=== PATIENT | male | born 1995 | race Caucasian/White ===

== ENCOUNTER → 2020-08-10 | Outpatient (CLI) | payer SELFPAY | END | disposition home or self-care (01) | LOC: LABWHC1 14:32 | PROVIDERS: ATTEND Emergency Medicine | DX: Z20.828 Contact with and (suspected) exposure to other viral communicable diseases (principal) | CPT/HCPCS: U0003; C9803 ==

== ENCOUNTER 2023-02-06 10:31 | Observation (INO) | payer OTHER ==
[2023-02-06] MEDS ORDERED: ALBUTEROL NEBULIZED 2.5 MG/3 ML INHALATION STA (10:49)
[2023-02-06] MEDS ORDERED: IPRATROPIUM-ALBUTEROL 3 ML NEB INHALATION STA (10:49)
[2023-02-06] MEDS ORDERED: methylPREDNISolone SOD SUCCI 125 MG/2 ML VIAL IV STA (10:51)
[2023-02-06] MEDS ORDERED: MAGNESIUM SULFATE-D5W PMX 1 GM in DEXTROSE/WATER 1 100ML.BAG IVPB ONE (11:00)
--- NOTE | 2023-02-06 11:26 | XR ---
EXAMINATION TYPE: XR chest 2V DATE OF EXAM: 02/06/2023 11:16 AM COMPARISON: None TECHNIQUE: XR chest 2V Frontal and lateral views of the chest. CLINICAL INDICATION:Male, 27 years old with history of difficulty breathing; FINDINGS: Lungs/Pleura: There is no evidence of pleural effusion, focal consolidation, or pneumothorax. Mild h yperinflation. Pulmonary vascularity: Unremarkable. Heart/mediastinum: Cardiomediastinal silhouette is unremarkable. Musculoskeletal: No acute osseous pathology. IMPRESSION: Mild hyperinflation which could be seen with asthma or bronchitis. No pneumothorax.
[2023-02-06 11:43] LABS: Basophils # (A) 0.1 k/uL (0-0.2); Basophils % (A) 1 %; Eosinophils # (A) 1.3 k/uL (0-0.7); Eosinophils % (A) 9 %; HCT 52.9 % (39.0-53.0); HGB 17.7 gm/dL (13.0-17.5); Lymphocytes # (A) 1.8 k/uL (1.0-4.8); Lymphocytes % (A) 13 %; MCH 29.2 pg (25.0-35.0); MCHC 33.5 g/dL (31.0-37.0); MCV 87.2 fL (80.0-100.0); Mean Platelet Volume 7.8; Monocytes # (A) 1.1 k/uL (0-1.0); Monocytes % (A) 8 %; Neutrophils % (A) 66 %; Platelet Count 368 k/uL (150-450); RBC 6.07 m/uL (4.30-5.90); RDW 12.6 % (11.5-15.5); WBC 13.6 k/uL (3.8-10.6)
[2023-02-06 12:06] LABS: Partial Thromboplastin Time 23.8 sec (22.0-30.0); Prothrombin Time 10.5 sec (9.0-12.0)
[2023-02-06 12:08] LABS: Albumin 5.2 g/dL (3.5-5.0); Calcium 10.2 mg/dL (8.4-10.2); Potassium 4.6 mmol/L (3.5-5.1); Total Bilirubin 1.5 mg/dL (0.2-1.3); Total Protein 8.2 g/dL (6.3-8.2)
--- NOTE | 2023-02-06 14:49 | ED ---
SOB HPI - General Chief Complaint: Shortness of Breath Stated Complaint: sob Source: patient Mode of arrival: ambulatory Limitations: no limitations - History of Present Illness Initial Comments: 27-year-old male with history of mild intermittent asthma who presents to the emergency department reporting shortness of breath. States that he had a significant history of asthma as a child. This subsided for many years. This week the patient has been more short of breath. He bought a primatine inhaler and states that he has been using it constantly. He also has an albuterol inhaler. He went to urgent care who gave steroid shots. He has also been taking prednisone twice daily and states that his breathing continues to get worse. He denies any fevers. No sick contacts. No chest pain. No history of cardiac disease. No lower external swelling. No history of DVT or PE. No other alleviating, precipitating or modifying factors - Related Data Home Medications Medication Instructions Recorded Confirmed Albuterol Sulfate [Albuterol 2 puff PO RT-Q6H PRN 02/06/23 02/06/23 Sulfate Hfa] EPINEPHrine [Primatene Mist] 1 - 2 puff INHALATION RT-BID PRN 02/06/23 02/06/23 Allergies Allergy/AdvReac Type Severity Reaction Status Date / Time No Known Allergies Allergy Verified 02/06/23 11:59 Review of Systems ROS Statement: Those systems with pertinent positive or pertinent negative responses have been documented in the HPI. ROS Other: All systems not noted in ROS Statement are negative. Past Medical History Past Medical History: Asthma History of Any Multi-Drug Resistant Organisms: None Reported Past Surgical History: No Surgical Hx Reported Past Psychological History: No Psychological Hx Reported Smoking Status: Former smoker Past Alcohol Use History: None Reported Past Drug Use History: Marijuana General Exam Limitations: no limitations Course Vital Signs 02/06/23 02/06/23 02/06/23 10:31 11:05 11:36 Temperature 98.1 F Pulse Rate 148 H 118 H Respiratory 20 19 20 Rate Blood Pressure 129/79 O2 Sat by Pulse 98 Oximetry 02/06/23 02/06/23 02/06/23 11:44 15:00 16:01 Temperature 98.1 F 98.3 F Pulse Rate 122 H 107 H 101 H Respiratory 19 18 17 Rate Blood Pressure 132/87 135/81 O2 Sat by Pulse 98 95 Oximetry Medical Decision Making - Medical Decision Making Was pt. sent in by a medical professional or institution (ESTHER Gleason, LINUX NETWORK ENGINEER, urgent care, hospital, or fdc...) When possible be specific @ -[No] Did you speak to anyone other than the patient for history (EMS, parent, family, police, friend...)? What history was obtained from this source @ -[No] Did you review nursing and triage notes (agree or disagree)? Why? @ -[I reviewed and agree with nursing and triage notes] Were old charts reviewed (outside hosp., previous admission, EMS record, old EKG, old radiological studies, urgent care reports/EKG's, fdc records)? Report findings @ -[No old charts were reviewed] Differential Diagnosis (chest pain, altered mental status, abdominal pain women, abdominal pain men, vaginal bleeding, weakness, fever, dyspnea, syncope, headache, dizziness, GI bleed, back pain, seizure, CVA, palpatations, mental health, musculoskeletal)? @ -[not applicable] EKG interpreted by me (3pts min.). @ -[As above] X-rays interpreted by me (1pt min.). @ -[None done] CT interpreted by me (1pt min.). @ -[None done] U/S interpreted by me (1pt. min.). @ -[None done] What testing was considered but not performed or refused? (CT, X-rays, U/S, labs)? Why? @ -[None] What meds were considered but not given or refused? Why? @ -[None] Did you discuss the management of the patient with other professionals (professionals i.e. ESTHER Gleason, LINUX NETWORK ENGINEER, lab, RT, psych nurse, social media sr strategy manager, gis programmer, teacher, operations officer trust department, case liner)? Give summary @ -[No] Was smoking cessation discussed for >3mins.? @ -[No] Was critical care preformed (if so, how long)? @ -[No] Were there social determinants of health that impacted care today? How? (Homelessness, low income, unemployed, alcoholism, drug addiction, transportation, low edu. Level, literacy, decrease access to med. care, longterm, rehab)? @ -[No] Was there de-escalation of care discussed even if they declined (Discuss DNR or withdrawal of care, Hospice)? DNR status @ -[No] What co-morbidities impacted this encounter? (DM, HTN, Smoking, COPD, CAD, Cancer, CVA, ARF, Chemo, Hep., AIDS, mental health diagnosis, sleep apnea, morbid obesity)? @ -[None] Was patient admitted / discharged? Hospital course, mention meds given and route, prescriptions, significant lab abnormalities, going to OR and other pertinent info. @ -Upon arrival the patient was placed into trauma 2. He is extremely tachycardic likely related to Primatene use. IV is established and laboratory studies are conducted. Patient was given 125 of Solu-Medrol. Chest x-ray demonstrates acute bronchitis. As he is failing outpatient treatment I did discuss the case with Dr. barrios who agreed to admission Undiagnosed new problem with uncertain prognosis? @ -[No] Drug Therapy requiring intensive monitoring for toxicity (Heparin, Nitro, Insulin, Cardizem)? @ -[No] Were any procedures done? @ -[No] Diagnosis/symptom? @ -[default] Acute, or Chronic, or Acute on Chronic? @ -[default] Uncomplicated (without systemic symptoms) or Complicated (systemic symptoms)? @ -[default] Side effects of treatment? @ -[No] Exacerbation, Progression, or Severe Exacerbation? @ -[No] Poses a threat to life or bodily function? How? (Chest pain, USA, ID, pneumonia, PE, COPD, DKA, ARF, appy, cholecystitis, CVA, Diverticulitis, Homicidal, Suicidal, threat to staff... and all critical care pts) @ -[No] - Lab Data Result diagrams: 02/06/23 10:50 02/06/23 10:50 Lab Results 02/06/23 02/06/23 02/06/23 Range/Units 10:50 10:50 10:50 WBC 13.6 H (3.8-10.6) k/uL RBC 6.07 H (4.30-5.90) m/uL Hgb 17.7 H (13.0-17.5) gm/dL Hct 52.9 (39.0-53.0) % MCV 87.2 (80.0-100.0) fL MCH 29.2 (25.0-35.0) pg MCHC 33.5 (31.0-37.0) g/dL RDW 12.6 (11.5-15.5) % Plt Count 368 (150-450) k/uL MPV 7.8 Neutrophils % 66 % Lymphocytes % 13 % Monocytes % 8 % Eosinophils % 9 % Basophils % 1 % Neutrophils # 9.0 H (1.3-7.7) k/uL Lymphocytes # 1.8 (1.0-4.8) k/uL Monocytes # 1.1 H (0-1.0) k/uL Eosinophils # 1.3 H (0-0.7) k/uL Basophils # 0.1 (0-0.2) k/uL PT 10.5 (9.0-12.0) sec INR 1.0 (<1.2) APTT 23.8 (22.0-30.0) sec D-Dimer 0.18 (<0.60) mg/L FEU Sodium 139 (137-145) mmol/L Potassium 4.6 (3.5-5.1) mmol/L Chloride 99 (98-107) mmol/L Carbon Dioxide 25 (22-30) mmol/L Anion Gap 15 mmol/L BUN 19 (9-20) mg/dL Creatinine 1.41 H (0.66-1.25) mg/dL Est GFR (CKD-EPI)AfAm 78 (>60 ml/min/1.73 sqM) Est GFR (CKD-EPI)NonAf 68 (>60 ml/min/1.73 sqM) Glucose 159 H (74-99) mg/dL Plasma Lactic Acid Remington (0.7-2.0) mmol/L Calcium 10.2 (8.4-10.2) mg/dL Total Bilirubin 1.5 H (0.2-1.3) mg/dL AST 27 (17-59) U/L ALT 31 (4-49) U/L Alkaline Phosphatase 77 (38-126) U/L Troponin I (0.000-0.034) ng/mL Total Protein 8.2 (6.3-8.2) g/dL Albumin 5.2 H (3.5-5.0) g/dL Influenza Type A (PCR) (Not Detectd) Influenza Type B (PCR) (Not Detectd) RSV (PCR) (Not Detectd) SARS-CoV-2 (PCR) (Not Detectd) 02/06/23 02/06/23 02/06/23 Range/Units 10:50 10:50 10:50 WBC (3.8-10.6) k/uL RBC (4.30-5.90) m/uL Hgb (13.0-17.5) gm/dL Hct (39.0-53.0) % MCV (80.0-100.0) fL MCH (25.0-35.0) pg MCHC (31.0-37.0) g/dL RDW (11.5-15.5) % Plt Count (150-450) k/uL MPV Neutrophils % % Lymphocytes % % Monocytes % % Eosinophils % % Basophils % % Neutrophils # (1.3-7.7) k/uL Lymphocytes # (1.0-4.8) k/uL Monocytes # (0-1.0) k/uL Eosinophils # (0-0.7) k/uL Basophils # (0-0.2) k/uL PT (9.0-12.0) sec INR (<1.2) APTT (22.0-30.0) sec D-Dimer (<0.60) mg/L FEU Sodium (137-145) mmol/L Potassium (3.5-5.1) mmol/L Chloride (98-107) mmol/L Carbon Dioxide (22-30) mmol/L Anion Gap mmol/L BUN (9-20) mg/dL Creatinine (0.66-1.25) mg/dL Est GFR (CKD-EPI)AfAm (>60 ml/min/1.73 sqM) Est GFR (CKD-EPI)NonAf (>60 ml/min/1.73 sqM) Glucose (74-99) mg/dL Plasma Lactic Acid Remington 1.9 (0.7-2.0) mmol/L Calcium (8.4-10.2) mg/dL Total Bilirubin (0.2-1.3) mg/dL AST (17-59) U/L ALT (4-49) U/L Alkaline Phosphatase (38-126) U/L Troponin I <0.012 (0.000-0.034) ng/mL Total Protein (6.3-8.2) g/dL Albumin (3.5-5.0) g/dL Influenza Type A (PCR) Not Detected (Not Detectd) Influenza Type B (PCR) Not Detected (Not Detectd) RSV (PCR) Not Detected (Not Detectd) SARS-CoV-2 (PCR) Not Detected (Not Detectd) - EKG Data EKG Comments: EKG interpreted by myself and demonstrates a sinus tachycardia with a rate of 142. MS interval 123. QRS 93. QTC 366. No acute ST segment elevation or depression Disposition Clinical Impression: Asthma exacerbation, Acute respiratory insufficiency, Tachycardia Disposition: ADMITTED IP TO THIS HOSP Condition: Stable Is patient prescribed a controlled substance at d/c from ED?: No Time of Disposition: 14:50 Decision to Admit Reason: Admit from EC Decision Date: 02/06/23 Decision Time: 14:50
[2023-02-06] MEDS ORDERED: NALOXONE 0.4 MG/ML 1 ML VIAL IV PRN (14:50)
[2023-02-06 16:33] VITALS: RESP 16
[2023-02-06] MEDS: methylPREDNISolone SOD SUCCI 40 MG/ML 1 ML VIAL IV SCH ×2 (19:00→23:35)
[2023-02-06] MEDS: IPRATROPIUM-ALBUTEROL 3 ML NEB INHALATION SCH ×2 (20:01→20:02)
[2023-02-06] MEDS: SODIUM CHLORIDE 0.9% 1,000 ML IV SCH ×2 (20:52→21:08)
--- NOTE | 2023-02-06 23:21 | P.HPIM ---
History of Present Illness H&P Date: 02/06/23 Chief Complaint: Shortness of breath Patient is a 27-year-old male with a known history of mild intermittent asthma usually under control and no recent admissions or prior intubation, prior history of smoking and marijuana use presents to ER due to complaints of shortness of breath. Patient has been having symptoms for the past 1 week. He was seen in the urgent care facility on last Saturday. He was given IM steroid and oral prednisone to go home with. He also bought Primatene inhaler [id number]. He has been using albuterol inhaler and Primatene inhaler several times a day without significant improvement in breathing. Presented to ER due to her symptoms not getting better. Denies any complaints of cough or sputum production. No fever no chills. No nausea vomiting or abdominal pain or diarrhea. No leg swelling. No headache or dizziness or lightheadedness. On admission patient was tachycardic with heart rate 148. Pulse ox 98% on room air. Afebrile. Chest x-ray showed mild and hyperinflation which could be seen with asthma or bronchitis. No pneumothorax. EKG showed sinus tachycardia. Laboratory data showed WBC 13.6 hemoglobin 17.7 and platelets 368 eosinophils 1.3 Sodium 139 potassium 4.6 chloride 91 bicarb is 25 BUN 19 and creatinine 1.41 and total bilirubin level 1.5 liver US elevated. Influenza A, B, RSV and COVID-19 PCR not detected. Review of Systems Constitutional: Patient denies any fever or chills . no Generalized weakness. Abdomen: Patient denied any nausea or vomiting or abd. pain Cardiovascular: Patient denies any chest pain. Positive for short of breath no palpitations. Respiratory: Denied any cough or sputum production. Patient does have shortness of breath. Neurologic: Patient denied any numbness or tingling headache. Musculoskeletal: Patient denies any complaints of joint swelling or deformity. Skin: Negative Psychiatric: Negative Endocrine: No heat or cold intolerance. No recent weight gain. Genitourinary: No dysuria or hematuria. All other 14 point ROS negative except the above Past Medical History Past Medical History: Asthma History of Any Multi-Drug Resistant Organisms: None Reported Past Surgical History: No Surgical Hx Reported Past Psychological History: No Psychological Hx Reported Smoking Status: Former smoker Past Alcohol Use History: None Reported Past Drug Use History: Marijuana Medications and Allergies Home Medications Medication Instructions Recorded Confirmed Type Albuterol Sulfate [Albuterol 2 puff PO RT-Q6H PRN 02/06/23 02/06/23 History Sulfate Hfa] EPINEPHrine [Primatene Mist] 1 - 2 puff INHALATION RT-BID PRN 02/06/23 02/06/23 History Allergies Allergy/AdvReac Type Severity Reaction Status Date / Time No Known Allergies Allergy Verified 02/06/23 11:59 Physical Exam Vitals: Vital Signs Temp Pulse Pulse Resp BP BP Pulse Ox 02/06/23 20:11 108 H 02/06/23 20:02 96 02/06/23 19:12 98.4 F 101 H 16 146/77 98 02/06/23 16:31 98.5 F 110 H 16 139/86 97 02/06/23 16:01 98.3 F 101 H 17 135/81 95 02/06/23 15:00 98.1 F 107 H 18 132/87 98 02/06/23 11:44 122 H 19 02/06/23 11:36 118 H 20 02/06/23 11:05 19 02/06/23 10:31 98.1 F 148 H 20 129/79 98 Intake and Output 02/06/23 02/06/23 02/07/23 14:59 22:59 06:59 Other: # Voids 1 Weight 74.843 kg 74.843 kg PHYSICAL EXAMINATION: Patient is lying in the bed comfortably, no acute distress, awake alert and oriented.. HEENT: Normocephalic. Neck is supple. Pupils reactive. Nostrils clear. Oral cavity is moist. Neck reveals no JVD, carotid bruits, or thyromegaly. CHEST EXAMINATION: Trachea is central. Symmetrical expansion. Bilateral diminished air entry and scattered rhonchi and wheezing. Nonlabored breathing.. CARDIAC: Normal S1, S2 with no gallops. No murmurs ABDOMEN: Soft. Bowel sounds present. Nontender. No organomegaly. No abdominal bruits. Extremities: reveal no edema. No clubbing or cyanosis Neurologically awake, alert, oriented x3 with well-coordinated movements. No focal deficits noted Skin: No rash or skin lesions. Psychiatric: Coperative. Nonsuicidal, Musculoskeletal: No joint swelling or deformity. Normal range of motion. Results CBC & Chem 7: 02/06/23 10:50 02/06/23 10:50 Labs: Abnormal Lab Results - Last 24 Hours (Table) 02/06/23 02/06/23 Range/Units 10:50 10:50 WBC 13.6 H (3.8-10.6) k/uL RBC 6.07 H (4.30-5.90) m/uL Hgb 17.7 H (13.0-17.5) gm/dL Neutrophils # 9.0 H (1.3-7.7) k/uL Monocytes # 1.1 H (0-1.0) k/uL Eosinophils # 1.3 H (0-0.7) k/uL Creatinine 1.41 H (0.66-1.25) mg/dL Glucose 159 H (74-99) mg/dL Total Bilirubin 1.5 H (0.2-1.3) mg/dL Albumin 5.2 H (3.5-5.0) g/dL Thrombosis Risk Factor Assmnt - DVT/VTE Prophylaxis DVT/VTE Prophylaxis: Pharmacologic Prophylaxis ordered - Choose All That Apply Any of the Below Risk Factors Present?: No Other Risk Factors: No Other congenital or acquired thrombophilia - If yes, enter type in comment: No Thrombosis Risk Factor Assessment Level: Very Low Risk Assessment and Plan Assessment: Acute severe asthma exacerbation. Failed outpatient therapy. Sinus tachycardia likely due to use of Primatene and albuterol inhalers. Childhood asthma Acute kidney injury with creatinine of 1.41 DVT prophylaxis with early ambulation Plan: Patient will be continued on IV hydration and IV Solu-Medrol 60 mg every 6 hourly. Continue with DuoNebs and monitor closely. Pulmonary was consulted for evaluation. Time with Patient: Greater than 30
[2023-02-07] MEDS: IPRATROPIUM-ALBUTEROL 3 ML NEB INHALATION PRN ×2 (00:07→03:24)
[2023-02-07] MEDS ORDERED: SODIUM CHLORIDE 0.9% 1,000 ML IV SCH (00:15)
--- NOTE | 2023-02-07 00:20 | P.CNPUL ---
History of Present Illness Consult date: 02/07/23 Requesting physician: Keyonna Schneider Reason for consult: asthma Chief complaint: shortness of breath and wheezing History of present illness: I'm seeing this patient in new consultation today 02/07/2023 for acute asthma exacerbation. Patient is a 27-year-old white male with past medical history significant for asthma. He does have a brief smoking history, but has quit over 2 years ago. Patient normally follows with Dr. Tavarez for management of his asthma on an outpatient basis. He currently utilizes an albuterol inhaler. He was on Singulair in the past, however, his insurance did not cover this medication and he stopped taking it. Patient has since accepted a new job, and will be getting new insurance. Patient is reporting progressive shortness of breath and wheezing over the last couple days. Symptoms did not improve with increased use of his as needed albuterol inhaler. He denies any fevers, chills, cough, chest pain. He is currently sitting up in bed, on 4 L nasal cannula, in no acute distress. Chest x-ray on arrival showed no focal consolidation or evidence of pneumonia. There was mild hyperinflation. CBC on arrival showed a WBC count of 13.6, hemoglobin 17.7, hematocrit 52.9, platelets 368. D-dimer was low at 0.18. BMP shows a sodium of 139, potassium 4.6, chloride 99, serum CO2 25, BUN 19, creatinine 1.41, glucose 159. Lactic acid level 1.9. Normal saline is infusing at 75 mL per hour. Troponin negative 1. He was negative for influenza, RSV, COVID-19. He is afebrile. Vital signs are stable. Review of Systems REVIEW OF SYSTEMS: CONSTITUTIONAL: Denies any recent significant weight loss or weight gain. EYES: Denies change in vision. EARS, NOSE, MOUTH, THROAT: Denies headaches, denies sore throat. CARDIOVASCULAR: Denies chest pain,weight gain,lower extremity edema, or syncopal episodes. he does report occasional self-limiting RESPIRATORY: see HPI GASTROINTESTINAL: Denies change in appetite, abdominal pain, nausea and vomiting, or diarrhea GENITOURINARY: Denies hematuria, denies infections. MUSKULOSKELETAL: Denies pain, denies swelling. INTEGUMENTARY: Denies rash, denies eczema. NEUROLOGICAL: Denies recent memory loss, no recent seizure activity. PSYCHIATRIC: Denies anxiety, denies depression. HEMATOLOGIC/LYMPHATIC: Denies anemia, denies enlarged lymph node Past Medical History Past Medical History: Asthma History of Any Multi-Drug Resistant Organisms: None Reported Past Surgical History: No Surgical Hx Reported Past Psychological History: No Psychological Hx Reported Smoking Status: Former smoker Past Alcohol Use History: None Reported Past Drug Use History: Marijuana Medications and Allergies Home Medications Medication Instructions Recorded Confirmed Type Albuterol Sulfate [Albuterol 2 puff PO RT-Q6H PRN 02/06/23 02/06/23 History Sulfate Hfa] EPINEPHrine [Primatene Mist] 1 - 2 puff INHALATION RT-BID PRN 02/06/23 02/06/23 History Allergies Allergy/AdvReac Type Severity Reaction Status Date / Time No Known Allergies Allergy Verified 02/06/23 11:59 Physical Exam Vitals: Vital Signs Temp Pulse Pulse Resp BP BP Pulse Ox 02/06/23 20:11 108 H 02/06/23 20:02 96 02/06/23 19:12 98.4 F 101 H 16 146/77 98 02/06/23 16:31 98.5 F 110 H 16 139/86 97 02/06/23 16:01 98.3 F 101 H 17 135/81 95 02/06/23 15:00 98.1 F 107 H 18 132/87 98 02/06/23 11:44 122 H 19 02/06/23 11:36 118 H 20 02/06/23 11:05 19 02/06/23 10:31 98.1 F 148 H 20 129/79 98 Intake and Output 02/06/23 02/06/23 02/07/23 14:59 22:59 06:59 Other: # Voids 1 Weight 74.843 kg 74.843 kg GENERAL EXAM: Alert, 27-year-old white male, comfortable in no apparent distress. HEAD: Normocephalic and atraumatic EYES: Normal reaction of pupils, equal size. NOSE: Clear with pink turbinates. THROAT: No erythema or exudates. NECK: No masses, no JVD. CHEST: No chest wall deformity. LUNGS: Equal air entry withdiminished lung sounds throughout with end expiratory wheezes. No crackles, wheeze, rhonchi or dullness. on 4 L nasal cannula. No conv ersational dyspnea or accessory muscle use.. CVS: S1 and S2 normal with no audible murmur, regular rhythm. No extra heart sounds. Heart rate 108 bpm ABDOMEN: No hepatosplenomegaly, active bowel sounds, no guarding or rigidity. SPINE: No scoliosis or deformity SKIN: No rashes CENTRAL NERVOUS SYSTEM: No focal deficits, tone is normal in all 4 extremities. EXTREMITIES: There is no peripheral edema, clubbing, or cyanosis. Peripheral pulses are intact. Results - Laboratory Findings CBC and BMP: 02/06/23 10:50 02/06/23 10:50 PT/INR, D-dimer PT 10.5 sec (9.0-12.0) 02/06/23 10:50 INR 1.0 (<1.2) 02/06/23 10:50 D-Dimer 0.18 mg/L FEU (<0.60) 02/06/23 10:50 Abnormal lab findings: Abnormal Labs 02/06/23 02/06/23 10:50 10:50 WBC 13.6 H RBC 6.07 H Hgb 17.7 H Neutrophils # 9.0 H Monocytes # 1.1 H Eosinophils # 1.3 H Creatinine 1.41 H Glucose 159 H Total Bilirubin 1.5 H Albumin 5.2 H - Diagnostic Findings Chest x-ray: image reviewed Assessment and Plan Assessment: Acute asthma exacerbation, chest x-ray shows evidence of hyperinflation without any focal consolidation or evidence of pneumonia. Acute hypoxemic respiratory failure, currently on 4 L nasal cannula acute kidney injury, creatinine 1.4 Ex smoker, patient has a brief smoking history plan: Patient's medications, labs, chest x-ray reviewed continue supplemental oxygen, and wean FIO2 as tolerated Continue bronchodilators and IV Solu-Medrol start Symbicort inhaler Continue IV hydration with normal saline at 75 mL per hour Will will continue to follow I have personally seen and examined the patient, performed the documentation and the assessment and plan as written. Number of minutes spent on the visit:20 Time with Patient: Greater than 30
[2023-02-07] MEDS: methylPREDNISolone SOD SUCCI 125 MG/2 ML VIAL IV SCH ×2 (00:21→06:04)
[2023-02-07 02:58] VITALS: TEMP 97.9
[2023-02-07] MEDS: IPRATROPIUM-ALBUTEROL 3 ML NEB INHALATION SCH ×2 (07:32→11:14)
[2023-02-07] MEDS ORDERED: SYMBICORT 160-4.5 MCG INHALER INHALATION SCH (08:00)
[2023-02-07 08:32] VITALS: BP 129/79
[2023-02-07 08:56] LABS: Basophils # (A) 0.01 X 10*3/uL (0.00-0.10); Basophils % (A) 0.1 %; Eosinophils # (A) 0 X 10*3/uL (0.04-0.35); Eosinophils % (A) 0 %; HCT 47.2 % (39.6-50.0); HGB 15.6 g/dL (13.0-17.0); Immature Grans, Automated 0.4 %; Lymphocytes # (A) 0.33 X 10*3/uL (0.90-5.00); Lymphocytes % (A) 3.1 %; MCH 28.8 pg (27.0-32.0); MCHC 33.1 g/dL (32.0-37.0); MCV 87.1 fL (80.0-97.0); Mean Platelet Volume 10.1 fL (9.5-12.2); Monocytes # (A) 0.13 X 10*3/uL (0.20-1.00); Monocytes % (A) 1.2 %; NRBC Per 100 WBC 0 /100 WBCS (0.0-0.0); Neutrophils % (A) 95.2 %; Platelet Count 339 X 10*3/uL (140-440); RBC 5.42 X 10*6/uL (4.40-5.60); WBC 10.61 X 10*3/uL (4.50-10.00)
[2023-02-07] MEDS ORDERED: predniSONE 20 MG TAB PO SCH (09:00)
[2023-02-07] MEDS ORDERED: AZITHROMYCIN 500 MG TAB PO SCH (09:00)
[2023-02-07 09:04] LABS: African American GFR (CKD) 94.8 (60.0-200.0); Anion Gap 14.5 mmol/L (10.00-18.00); BUN/Creat Ratio 18.08 Ratio (12.00-20.00); Blood Urea Nitrogen 21.7 mg/dL (9.0-27.0); Calcium 9.5 mg/dL (8.7-10.3); Carbon Dioxide 20.5 mmol/L (20.0-27.5); Non-African American GFR(CKD) 81.8 (60.0-200.0); Potassium 4.1 mmol/L (3.5-5.5)
[2023-02-07 11:26] VITALS: PULSE 120
[2023-02-07] MEDS ORDERED: MONTELUKAST 10 MG TAB PO SCH (21:00)
--- NOTE | 2023-02-08 13:08 | P.DS ---
Providers Date of admission: 02/06/23 14:50 Expected date of discharge: 02/07/23 Attending physician: Sophie Valdivia Consults: 02/06/23 14:50 Consult Physician Urgent Consulting Provider: Marcelo Low Consult Reason/Comments: asthma exacerbation, failing outpatient treatment Do you want consulting provider notified?: Yes Primary care physician: Daysi Aguilar Hospital Course: Final diagnosis Acute severe asthma exacerbation. Failed outpatient therapy. Sinus tachycardia likely due to use of Primatene and albuterol inhalers. Improving Childhood asthma Acute kidney injury with creatinine of 1.41, improving DVT prophylaxis Discharge disposition Patient is being discharged in a stable condition with guarded prognosis to home. Patient will follow-up with in the outpatient setting upon discharge. Patient is to continue on a prednisone taper along with inhalers including Symbicort and outpatient follow-up with pulmonary as scheduled for further PFT testing. Recommend labs in the outpatient setting to monitor kidney functions. Total time taken is greater than 35 minutes. Hospital course This is a 27-year-old male who was recently admitted with acute severe asthma exacerbation with failed outpatient therapy. Patient was started on a quick prednisone taper given an inhaler although continue to worsen and presented to the emergency department with shortness of breath is placed on oxygen and started on IV steroids. Patient was evaluated by pulmonary and started on Symbicort and encouraged continued albuterol use and has now transitioned oral prednisone. Patient to continue prednisone taper on discharge and complete the last 2 days of Zithromax. Patient instructed to follow-up with pulmonary outpatient for further PFT testing. Patient has been cleared by consultations for discharge. Please refer to consultation notes for further HPI. Currently no reports of chest pain, worsening shortness of breath, or palpitations. Patient is afebrile. No reports of nausea or vomiting and patient is tolerating diet. Patient will be discharged home today. Physical exam: Gen: This is a 19-year-old male who is awake, alert and oriented 3, well- developed, well-nourished HEENT: Head is atraumatic, normocephalic. Pupils equal, round. Sclerae is anicteric. NECK: Supple. No JVD. No lymphadenopathy. No thyromegaly. LUNGS: Coarse rhonchi noted bilaterally with improved aeration. No intercostal retractions. HEART: Regular rate and rhythm. No murmur. ABDOMEN: Soft. Bowel sounds are present. No masses. No tenderness. EXTREMITIES: No pedal edema. No calf tenderness. NEUROLOGICAL: Patient is awake, alert and oriented x3. Cranial nerves 2 through 12 are grossly intact. Please refer to medication reconciliation sheet for a list of medications. The impression and plan of care has been dictated by Mine Dos Santos, Nurse Practitioner as directed. Dr. Shea MD I have performed a history and examination and MDM of this patient, discussed the same with the dictator, and agree with the dictator's assessment and plan as written ,documented as a scribe. Based on total visit time, I have performed more than 50% of the visit. Patient Condition at Discharge: Stable Plan - Discharge Summary Discharge Rx Participant: No New Discharge Prescriptions: New Budesonide-Formot 160-4.5 Mcg [Symbicort 160-4.5 Mcg Inhaler] 2 puff INHALATION RT-BID 30 Days #1 each predniSONE 10 mg PO DIRECTED #30 tab Montelukast [Singulair] 10 mg PO HS #30 tab Azithromycin [Zithromax] 500 mg PO DAILY 3 Days #3 tab Continue EPINEPHrine [Primatene Mist] 1 - 2 puff INHALATION RT-BID PRN PRN Reason: Shortness Of Breath Albuterol Sulfate [Albuterol Sulfate Hfa] 2 puff PO RT-Q6H PRN 30 Days #1 each PRN Reason: Shortness Of Breath Discharge Medication List EPINEPHrine [Primatene Mist] 1 - 2 puff INHALATION RT-BID PRN 02/06/23 [History] Albuterol Sulfate [Albuterol Sulfate Hfa] 2 puff PO RT-Q6H PRN 30 Days #1 each 02/07/23 [Rx] Azithromycin [Zithromax] 500 mg PO DAILY 3 Days #3 tab 02/07/23 [Rx] Budesonide-Formot 160-4.5 Mcg [Symbicort 160-4.5 Mcg Inhaler] 2 puff INHALATION RT-BID 30 Days #1 each 02/07/23 [Rx] Montelukast [Singulair] 10 mg PO HS #30 tab 02/07/23 [Rx] predniSONE 10 mg PO DIRECTED #30 tab 02/07/23 [Rx] Follow up Appointment(s)/Referral(s): Marcelo Low MD [STAFF PHYSICIAN] - 02/20/23 2:15 pm Jeff Tavarez MD [Primary Care Provider] - 1-2 days Ambulatory/Diagnostic Orders: Basic Metabolic Panel [LAB.AMB] Time Frame: 3 Days, Location: None Selected Activity/Diet/Wound Care/Special Instructions: Activity Limited until follow-up Follow-up with primary care provider on discharge Follow-up with pulmonary for further testing outpatient Continue taking medications as prescribed Recommend repeat labs in next few days to monitor kidney functions Discharge Disposition: HOME SELF-CARE
== END 2023-02-07 13:52 | disposition home or self-care (01) ==
LOC: EC 10:31 → 6NMEDSUR 14:50
PROVIDERS: ADMIT Internal Medicine; ATTEND Internal Medicine
DX: J45.21 Mild intermittent asthma with (acute) exacerbation (principal); J96.01 Acute respiratory failure with hypoxia; N17.9 Acute kidney failure, unspecified; R00.0 Tachycardia, unspecified; Z20.822 Contact with and (suspected) exposure to COVID-19; Z79.899 Other long term (current) drug therapy; Z87.891 Personal history of nicotine dependence
CPT/HCPCS: 96376 ×2; 96365; 96375; 99285; 36415; 94640 ×4; 94760; 93005; 85379; 84439; 80053; 80048; 84443; 83605; 84484; 85025 ×2; 85610; 85730; 87636; 71046; G0378 ×2; J2920; J2930 ×2; J3475; J7512

== ENCOUNTER 2025-01-09 01:33 | Inpatient (IN) | payer OTHER ==
[2025-01-09] MEDS: SODIUM CHLORIDE 0.9% 1,000 ML IV ONE (01:46)
[2025-01-09] MEDS: methylPREDNISolone SOD SUCCI 125 MG/2 ML VIAL IV STA (01:47)
[2025-01-09] MEDS: MAGNESIUM SULFATE-D5W PMX 1 GM in DEXTROSE/WATER 1 100ML.BAG IVPB SCH (01:49)
[2025-01-09] MEDS: ALBUTEROL NEBULIZED 2.5 MG/3 ML INHALATION STA ×2 (01:56→03:21)
[2025-01-09] MEDS: IPRATROPIUM 0.5 MG/2.5 ML NEBU INHALATION STA ×3 (01:57→03:21)
[2025-01-09] MEDS: ALBUTEROL NEBULIZED 2.5 MG/3 ML INHALATION SCH (02:01)
--- NOTE | 2025-01-09 02:18 | ED ---
General Adult HPI - General Chief complaint: Shortness of Breath Stated complaint: lianet Time Seen by Provider: 01/09/25 01:37 Source: patient, EMS Mode of arrival: EMS - History of Present Illness Initial comments: Patient is a 29-year-old male with a history of asthma presenting today for shortness of breath. States has had worsening shortness for the last 2 days. Throughout the day today not improving with home inhalers. has a son brought home and upper respiratory infection. Patient has had a cough with sputum. But denies hemoptysis. No fevers, no chest pain, no abdominal pain, no nausea or vomiting. No melena or hematochezia. Has not recently been on ster oids. No prior ICU admissions. Was admitted once to the hospital last summer for an asthma exacerbation. - Related Data Home Medications Medication Instructions Recorded Confirmed EPINEPHrine [Primatene Mist] 1 - 2 puff INHALATION RT-BID PRN 02/06/23 02/06/23 Previous Rx's Medication Instructions Recorded Albuterol Sulfate [Albuterol 2 puff PO RT-Q6H PRN 30 Days #1 02/07/23 Sulfate Hfa] each Azithromycin [Zithromax] 500 mg PO DAILY 3 Days #3 tab 02/07/23 Budesonide-Formot 160-4.5 Mcg 2 puff INHALATION RT-BID 30 Days 02/07/23 [Symbicort 160-4.5 Mcg Inhaler] #1 each Montelukast [Singulair] 10 mg PO HS #30 tab 02/07/23 predniSONE 10 mg PO DIRECTED #30 tab 02/07/23 Allergies Allergy/AdvReac Type Severity Reaction Status Date / Time No Known Allergies Allergy Verified 01/09/25 01:36 Review of Systems ROS Statement: Those systems with pertinent positive or pertinent negative responses have been documented in the HPI. ROS Other: All systems not noted in ROS Statement are negative. Past Medical History Past Medical History: Asthma History of Any Multi-Drug Resistant Organisms: None Reported Past Surgical History: No Surgical Hx Reported Past Psychological History: No Psychological Hx Reported Smoking Status: Former smoker Past Alcohol Use History: None Reported Past Drug Use History: Marijuana General Exam - General Exam Comments Initial Comments: PE: CONSTITUTIONAL: Male distress, pale, diaphoretic ill-appearing SKIN: Cool, damp, no jaundice, hives or petechiae EYES: Pupils are equally round, extraocular movements intact without nystagmus, clear conjunctiva, non-icteric sclera HENT: Normocephalic, atraumatic, moist mucus membranes, oropharynx clear without exudates NECK: , Full range of motion, normal appearance PULMONARY: Diffuse wheezing throughout all lung buckner, decreased excursion, tachypnea, no stridor CARDIOVASCULAR: Tachycardia, regular rate, rhythm, normal S1 and S2. No appreciated murmurs, rubs or gallops. Strong radial pulses with intact distal perfusion. No lower extremity edema GASTROINTESTINAL: Soft, active bowel sounds throughout, non-tender, non- distended, no palpable masses, no rebound or guarding. No hepatosplenomegaly MUSCULOSKELETAL: Extremities have no gross deformity, no edema, redness, or swelling. No calf swelling NEUROLOGIC:_a/o x 3, GCS 15, normal mentation and speech. Moves all extremities x 4 without motor or sensory deficit PSYCHIATRIC:_normal mood and affect, thought process is clear and linear Course Vital Signs 01/09/25 01/09/25 01/09/25 01:34 01:45 01:59 Temperature 98.2 F Pulse Rate 138 H 122 H Respiratory 22 24 Rate Blood Pressure 130/96 O2 Sat by Pulse 97 Oximetry 01/09/25 01/09/25 01/09/25 02:13 02:25 02:36 Temperature Pulse Rate 115 H 130 H 116 H Respiratory 22 Rate Blood Pressure 132/86 O2 Sat by Pulse 98 Oximetry 01/09/25 01/09/25 03:22 03:32 Temperature Pulse Rate 117 H 118 H Respiratory Rate Blood Pressure O2 Sat by Pulse Oximetry - Reevaluation(s) Reevaluation #1: Patient reassessed, he is much more comfortable appearing, no longer diaphoretic breathing comfortably, does continue to have coarse wheezing 01/09/25 03:05 EKG Findings - EKG Comments: EKG Findings:: Sinus tachycardia rate 130 bpm, intervals within acceptable limits, normal axis, no ST elevations or depressions, no arrhythmia, no ischemic changes Medical Decision Making - Medical Decision Making Was pt. sent in by a medical professional or institution (, PA, EARLY CHILDHOOD LEAD TEACHER, urgent care, hospital, or [facility]...) When possible be specific @ -[No] Did you speak to anyone other than the patient for history (EMS, parent, family, police, friend...)? What history was obtained from this source @ -[No] Did you review nursing and triage notes (agree or disagree)? Why? @ -[I reviewed and agree with nursing and triage notes] Were old charts reviewed (outside hosp., previous admission, EMS record, old EKG, old radiological studies, urgent care reports/EKG's, [facility] records)? Report findings @ -[Medical records reviewed] reviewed most recent x-ray in our system from January 2023 showed hyperinflation but no pneumothorax or acute process Differential Diagnosis (chest pain, altered mental status, abdominal pain women, abdominal pain men, vaginal bleeding, weakness, fever, dyspnea, syncope, headache, dizziness, GI bleed, back pain, seizure, CVA, palpatations, mental health, musculoskeletal)? Differential Dyspnea: Coronary syndrome, arrhythmia, tamponade, asthma, COPD, pulmonary embolism, pneumonia, pneumothorax, pulmonary effusion, anaphylaxis, diabetic ketoacidosis, flailed chest, pulmonary contusion, diaphragmatic rupture, anemia, neuromuscular, this is not meant to be an all-inclusive list. EKG interpreted by me (3pts min.). @ -[As above] X-rays interpreted by me (1pt min.). @Chest x-ray viewed I see no evidence of cardiomegaly, consolidations or pleural effusions, appears to show hyperinflation CT interpreted by me (1pt min.). @ -[None done] U/S interpreted by me (1pt. min.). @ -[None done] What testing was considered but not performed or refused? (CT, X-rays, U/S, labs)? Why? @ -[None] What meds were considered but not given or refused? Why? @ -[None] Did you discuss the management of the patient with other professionals (professionals i.e. , PA, EARLY CHILDHOOD LEAD TEACHER, lab, RT, psych nurse, social service worker, tooth cutter spur, teacher, tank officer, briefcase sewer)? Give summary @ -[No] Was smoking cessation discussed for >3mins.? @ -[No] Was critical care preformed (if so, how long)? @ -[No] Were there social determinants of health that impacted care today? How? (Homelessness, low income, unemployed, alcoholism, drug addiction, transportation, low edu. Level, literacy, decrease access to med. care, longterm, rehab)? @ -[No] Was there de-escalation of care discussed even if they declined (Discuss DNR or withdrawal of care, Hospice)? @ -[No] What co-morbidities impacted this encounter? (DM, HTN, Smoking, COPD, CAD, Cancer, CVA, ARF, Chemo, Hep., AIDS, mental health diagnosis, sleep apnea, morbid obesity)? Asthma Was patient admitted / discharged? Hospital course, mention meds given and route, prescriptions, significant lab abnormalities, going to OR and other pertinent info. @ -[hospital course] this is a pleasant 29-year-old gentleman presenting today for shortness of breath consistent with asthma exacerbation. Recent exposure to childhood URI. No improvement with home inhalers. On arrival patient is tachypneic, tachycardic, not hypoxic. He does have wheezing throughout all lung buckner. Immediately ordered DuoNebs, steroids, IV magnesium IV fluids. Will obtain basic labs Labs and imaging reviewed. Grossly within normal limits. Abnormal values not c oncerning for acute pathology related to presenting complaint. Patient has received a total of 4 DuoNeb treatments. 3 [id number] 5 mg albuterol with ipratropium and an additional low-dose DuoNeb. Despite this he has continued inspiratory next wheezing. He no longer appears diaphoretic or in any acute distress, work of breathing is improved and unlabored however due to the continued severity of his symptoms plan for admission for observation. Patient agreeable plan of care. Undiagnosed new problem with uncertain prognosis? @ -[No] Drug Therapy requiring intensive monitoring for toxicity (Heparin, Nitro, Insulin, Cardizem)? @ -[No] Were any procedures done? @ -[No] Diagnosis/symptom? @ -Asthma exacerbation, severe Acute, or Chronic, or Acute on Chronic? Acute Uncomplicated (without systemic symptoms) or Complicated (systemic symptoms)? @ -[default] Side effects of treatment? @ -[No] Exacerbation, Progression, or Severe Exacerbation? @ -[No] Poses a threat to life or bodily function? How? (Chest pain, [place], [place], pneumonia, PE, COPD, DKA, ARF, appy, cholecystitis, CVA, Diverticulitis, Homicidal, Suicidal, threat to staff... and all critical care pts) @ -[No] - Lab Data Result diagrams: 01/09/25 01:47 01/09/25 01:47 Lab Results 01/09/25 01/09/25 01/09/25 Range/Units 01:47 01:47 01:47 WBC 11.65 H (4.50-10.00) 10*3/uL RBC 5.35 (4.40-5.60) 10*6/uL Hgb 15.7 (13.0-17.0) g/dL Hct 45.7 (39.6-50.0) % MCV 85.4 (80.0-97.0) fL MCH 29.3 (27.0-32.0) pg MCHC 34.4 (32.0-37.0) g/dL Plt Count 331 (140-440) 10*3/uL MPV 10.2 (9.5-12.2) fL Immature Gran % (Auto) 0.3 % Neutrophils % 74.8 % Lymphocytes % 8.0 % Monocytes % 9.2 % Eosinophils % 7.0 % Basophils % 0.7 % Immature Gran # 0.04 (0.00-0.04) 10*3/uL Neutrophils # 8.71 H (1.80-7.70) 10*3/uL Lymphocytes # 0.93 (0.90-5.00) 10*3/uL Monocytes # 1.07 H (0.20-1.00) 10*3/uL Eosinophils # 0.82 H (0.04-0.35) 10*3/uL Basophils # 0.08 (0.00-0.10) 10*3/uL PT 10.7 (10.0-12.5) sec INR 1.0 (<1.2) APTT 23.2 (22.0-30.0) sec Sodium 141 (137-145) mmol/L Potassium 3.8 (3.5-5.1) mmol/L Chloride 105 (98-107) mmol/L Carbon Dioxide 21 L (22-30) mmol/L Anion Gap 15 mmol/L BUN 14 (9-20) mg/dL Creatinine 1.20 (0.66-1.25) mg/dL Est GFR (CKD-EPI)AfAm >90 (>60 ml/min/1.73 sqM) Est GFR (CKD-EPI)NonAf 81 (>60 ml/min/1.73 sqM) Glucose 129 H (74-99) mg/dL Calcium 10.0 (8.4-10.2) mg/dL Total Bilirubin 0.9 (0.2-1.3) mg/dL AST 29 (17-59) U/L ALT 30 (4-49) U/L Alkaline Phosphatase 77 (38-126) U/L Troponin I (0.000-0.034) ng/mL NT-Pro-B Natriuret Pep 54 pg/mL Total Protein 7.4 (6.3-8.2) g/dL Albumin 4.8 (3.5-5.0) g/dL Influenza Type A (PCR) (Not Detectd) Influenza Type B (PCR) (Not Detectd) RSV (PCR) (Not Detectd) SARS-CoV-2 (PCR) (Not Detectd) 01/09/25 01/09/25 Range/Units 01:47 01:47 WBC (4.50-10.00) 10*3/uL RBC (4.40-5.60) 10*6/uL Hgb (13.0-17.0) g/dL Hct (39.6-50.0) % MCV (80.0-97.0) fL MCH (27.0-32.0) pg MCHC (32.0-37.0) g/dL Plt Count (140-440) 10*3/uL MPV (9.5-12.2) fL Immature Gran % (Auto) % Neutrophils % % Lymphocytes % % Monocytes % % Eosinophils % % Basophils % % Immature Gran # (0.00-0.04) 10*3/uL Neutrophils # (1.80-7.70) 10*3/uL Lymphocytes # (0.90-5.00) 10*3/uL Monocytes # (0.20-1.00) 10*3/uL Eosinophils # (0.04-0.35) 10*3/uL Basophils # (0.00-0.10) 10*3/uL PT (10.0-12.5) sec INR (<1.2) APTT (22.0-30.0) sec Sodium (137-145) mmol/L Potassium (3.5-5.1) mmol/L Chloride (98-107) mmol/L Carbon Dioxide (22-30) mmol/L Anion Gap mmol/L BUN (9-20) mg/dL Creatinine (0.66-1.25) mg/dL Est GFR (CKD-EPI)AfAm (>60 ml/min/1.73 sqM) Est GFR (CKD-EPI)NonAf (>60 ml/min/1.73 sqM) Glucose (74-99) mg/dL Calcium (8.4-10.2) mg/dL Total Bilirubin (0.2-1.3) mg/dL AST (17-59) U/L ALT (4-49) U/L Alkaline Phosphatase (38-126) U/L Troponin I <0.012 (0.000-0.034) ng/mL NT-Pro-B Natriuret Pep pg/mL Total Protein (6.3-8.2) g/dL Albumin (3.5-5.0) g/dL Influenza Type A (PCR) Not Detected (Not Detectd) Influenza Type B (PCR) Not Detected (Not Detectd) RSV (PCR) Not Detected (Not Detectd) SARS-CoV-2 (PCR) Not Detected (Not Detectd) Disposition Clinical Impression: Asthma with severe exacerbation Disposition: ADMITTED IP TO THIS HOSP Condition: Stable Referrals: None,Stated [Primary Care Provider] - 1-2 days
[2025-01-09 02:23] LABS: Basophils # (A) 0.08 10*3/uL (0.00-0.10); Basophils % (A) 0.7 %; Eosinophils # (A) 0.82 10*3/uL (0.04-0.35); HCT 45.7 % (39.6-50.0); HGB 15.7 g/dL (13.0-17.0); Lymphocytes # (A) 0.93 10*3/uL (0.90-5.00); MCH 29.3 pg (27.0-32.0); MCHC 34.4 g/dL (32.0-37.0); MCV 85.4 fL (80.0-97.0); Mean Platelet Volume 10.2 fL (9.5-12.2); Monocytes # (A) 1.07 10*3/uL (0.20-1.00); Monocytes % (A) 9.2 %; Neutrophils # (A) 8.71 10*3/uL (1.80-7.70); Neutrophils % (A) 74.8 %; Platelet Count 331 10*3/uL (140-440); RBC 5.35 10*6/uL (4.40-5.60); RDW 13.1 % (11.5-14.5); WBC 11.65 10*3/uL (4.50-10.00)
[2025-01-09] MEDS: guaiFENesin 600 MG TABLET.ER PO STA (02:31)
[2025-01-09 02:37] LABS: Partial Thromboplastin Time 23.2 sec (22.0-30.0); Prothrombin Time 10.7 sec (10.0-12.5)
[2025-01-09 02:45] LABS: ALT 30 U/L (4-49); AST 29 U/L (17-59); African American GFR (CKD) >90 (>60 ml/min/1.73 sqM); Albumin 4.8 g/dL (3.5-5.0); Alkaline Phosphatase 77 U/L (38-126); Anion Gap 15 mmol/L; Blood Urea Nitrogen 14 mg/dL (9-20); Carbon Dioxide 21 mmol/L (22-30); Chloride 105 mmol/L (98-107); Glucose 129 mg/dL (74-99); Non-African American GFR(CKD) 81 (>60 ml/min/1.73 sqM); Potassium 3.8 mmol/L (3.5-5.1); Sodium 141 mmol/L (137-145); Total Bilirubin 0.9 mg/dL (0.2-1.3); Total Protein 7.4 g/dL (6.3-8.2)
[2025-01-09 02:54] LABS: NT-Pro-B-Type Natriuretic Pept 54 pg/mL
[2025-01-09 03:24] LABS: Influenza A Not Detected (Not Detectd); Influenza B Not Detected (Not Detectd); RSV Not Detected (Not Detectd)
--- NOTE | 2025-01-09 04:28 | XR ---
EXAM: XR Chest, 1 View CLINICAL HISTORY: ITS.REASON XR Reason: difficulty breathing TECHNIQUE: Frontal view of the chest. COMPARISON: No relevant prior studies available. FINDINGS: Lungs: No consolidation or mass. Pleural space: No acute findings. Heart: No cardiomegaly. Bones/joints: No acute findings. IMPRESSION: No acute cardiopulmonary process.
[2025-01-09] MEDS ORDERED: NALOXONE 0.4 MG/ML 1 ML VIAL IVP PRN (05:05)
[2025-01-09] MEDS ORDERED: BENZONATATE 100 MG CAP PO PRN (05:05)
[2025-01-09] MEDS ORDERED: HYDROcodone/APAP 5-325MG 1 EACH TAB PO PRN (05:05)
[2025-01-09] MEDS ORDERED: ACETAMINOPHEN TAB 325 MG TAB PO PRN (05:05)
[2025-01-09] MEDS: IPRATROPIUM-ALBUTEROL 3 ML NEB INHALATION STA (05:44)
[2025-01-09] MEDS: IPRATROPIUM-ALBUTEROL 3 ML NEB INHALATION SCH (08:06)
[2025-01-09] MEDS: guaiFENesin 600 MG TABLET.ER PO SCH (08:07)
[2025-01-09] MEDS: predniSONE 20 MG TAB PO SCH (08:07)
--- NOTE | 2025-01-09 11:19 | P.CNPUL ---
History of Present Illness Consult date: 01/09/25 Requesting physician: Ltio Montano Reason for consult: dyspnea, cough, asthma Chief complaint: Shortness of breath, cough, wheezing, chest tightness. History of present illness: Pulmonary consult dated January 09, 2025. 29-year-old male with a history of chronic bronchial asthma, presents to the emergency department, on January 09, complaining of 2 days worth of increasing and progressive shortness of breath. In addition, the patient complains of cough, wheezing, and tightness. No fever or chills. He apparently does not have a family doctor. For his asthma, he takes Singulair, 10 mg, and albuterol inhaler. He does not take anything for maintenance therapy other than the Singulair. He apparently has not seen a lung doctor in the past. He states that he does not currently smoke, although he did smoke in the past. He does use marijuana. He does not vape. Again, he does not have a family doctor. He states that he typically shops around for doctor, and used to see Dr. Tavarez. [facility] te count is 11.7, hemoglobin 15.7, hematocrit 45.7, and platelet count 331,000. Sodium 141, potassium 3.8, chlorides 105, CO2 21, BUN 14, creatinine 1.20. Glucose is 129. Viral screen was negative for RSV, coronavirus, and influenza. Chest x-ray was negative. Review of Systems REVIEW OF SYSTEMS: CONSTITUTIONAL: [Negative.] NEUROLOGIC: [ Negative.] HEENT: [ Negative.] CARDIAC: [Negative.] PULMONARY: Shortness of breath, cough, chest tightness, and wheezing. GI: [Negative.] : [Negative.] RHEUMATOLOGIC: [ Negative.] IMMUNOLOGIC: [ Negative.] ENDOCRINE: [Negative. ] DERMATOLOGIC: [Negative.] Past Medical History Past Medical History: Asthma History of Any Multi-Drug Resistant Organisms: None Reported Past Surgical History: No Surgical Hx Reported Past Psychological History: No Psychological Hx Reported Smoking Status: Former smoker Past Alcohol Use History: None Reported Past Drug Use History: Marijuana Medications and Allergies Home Medications Medication Instructions Recorded Confirmed Type EPINEPHrine [Primatene Mist] 1 - 2 puff INHALATION RT-BID PRN 02/06/23 02/06/23 History Albuterol Sulfate [Albuterol 2 puff PO RT-Q6H PRN 30 Days #1 05/18/23 Rx Sulfate Hfa] each Azithromycin [Zithromax] 500 mg PO DAILY 3 Days #3 tab 02/07/23 Rx Budesonide-Formot 160-4.5 Mcg 2 puff INHALATION RT-BID 30 Days 02/07/23 Rx [Symbicort 160-4.5 Mcg Inhaler] #1 each Montelukast [Singulair] 10 mg PO HS #30 tab 02/07/23 Rx predniSONE 10 mg PO DIRECTED #30 tab 02/07/23 Rx Allergies Allergy/AdvReac Type Severity Reaction Status Date / Time No Known Allergies Allergy Verified 01/09/25 01:36 Physical Exam Osteopathic Statement: *. No significant issues noted on an osteopathic structural exam other than those noted in the History and Physical/Consult. Vitals: Vital Signs Temp Pulse Pulse Pulse Resp BP BP 01/09/25 08:21 119 H 01/09/25 08:06 118 H 01/09/25 08:05 98.7 F 108 H 22 153/74 01/09/25 06:51 97.9 F 112 H 20 136/81 01/09/25 06:27 107 H 20 115/63 01/09/25 05:56 110 H 01/09/25 05:45 109 H 01/09/25 03:32 118 H 01/09/25 03:22 117 H 01/09/25 02:36 116 H 22 132/86 01/09/25 02:25 130 H 01/09/25 02:13 115 H 01/09/25 01:59 122 H 01/09/25 01:45 24 01/09/25 01:34 98.2 F 138 H 22 130/96 Pulse Ox 01/09/25 08:21 01/09/25 08:06 01/09/25 08:05 97 01/09/25 06:51 92 L 01/09/25 06:27 99 01/09/25 05:56 01/09/25 05:45 01/09/25 03:32 01/09/25 03:22 01/09/25 02:36 98 01/09/25 02:25 01/09/25 02:13 01/09/25 01:59 01/09/25 01:45 01/09/25 01:34 97 Intake and Output 01/08/25 01/09/25 01/09/25 22:59 06:59 14:59 Intake Total 240 Balance 240 Intake: Oral 240 Other: Weight 83.915 kg No acute distress, oriented 3. HEENT examination is grossly unremarkable. Mucous membranes are moist. No oral lesions. Neck supple. Full range of motion. No adenopathy thyromegaly or neck vein distention. Cardiovascular examination reveals regular rhythm rate. S1-S2 normal. No S3 or S4. No discernible murmur noted. Lungs reveal diffuse bilateral inspiratory and expiratory wheezes and rhonchi. The patient is quite bronchospastic. Breath sounds are equal. There are no crackles. Abdomen soft bowel sounds are heard. No masses or tenderness. Extremities are intact. No cyanosis clubbing or edema. Skin is without rash or lesion. Neurologic examination is brief but nonfocal. Results - Laboratory Findings CBC and BMP: 01/09/25 01:47 01/09/25 01:47 PT/INR, D-dimer PT 10.7 sec (10.0-12.5) 01/09/25 01:47 INR 1.0 (<1.2) 01/09/25 01:47 Abnormal lab findings: Abnormal Labs 01/09/25 01/09/25 01:47 01:47 WBC 11.65 H Neutrophils # 8.71 H Monocytes # 1.07 H Eosinophils # 0.82 H Carbon Dioxide 21 L Glucose 129 H - Diagnostic Findings Chest x-ray: image reviewed Assessment and Plan Assessment: Acute exacerbation of chronic bronchial asthma. Plan: Plan dated January 09, 2025. The patient is currently on appropriate medications, including updrafts with both albuterol sulfate and ipratropium bromide, as well as singular 10 mg at bedtime, and prednisone 40 mg a day. In addition, we add Symbicort 160/4.5, 2 puffs twice a day. The patient does not appear to have an infection, and at this time, does not need any antibiotics. All labs, x-rays, and medications are reviewed. We will continue to follow make recommendations along the way. The patient does need to get a family doctor. Prognosis is guarded. Dictation was produced using [employer] software. Please excuse any grammatical, word or spelling errors. Time with Patient: Greater than 30
[2025-01-09] MEDS ORDERED: DEXTROSE 50% SYRINGE 50 ML IVP PRN ×2 (12:16)
[2025-01-09] MEDS: MAGNESIUM SULFATE-D5W PMX 1 GM in DEXTROSE/WATER 1 100ML.BAG IVPB ONE (12:49)
[2025-01-09] MEDS: methylPREDNISolone SOD SUCCI 125 MG/2 ML VIAL IV SCH (12:49)
[2025-01-09] MEDS: INSULIN LISPRO (HumaLOG) 100 UNIT/ML 10 mL VL SQ SCH (12:50)
--- NOTE | 2025-01-09 13:43 | P.HPIM ---
History of Present Illness H&P Date: 01/09/25 History of present illness; patient is 29-year-old gentleman with past medical history significant for asthma presented to the ER because of shortness of breath. Patient said that he was all right 2 days back when he started noticing shortness of breath. Shortness of breath was present on rest as resolution. Patient was complaining of wheezing. Patient was complaining of cough which is nonproductive. There was no complaint of fever or chills. Patient stated that he was exposed to his kid being sick with upper respiratory infection. Patient has been using inhalers at home but without any relief. Because of his worsening shortness of breath, patient came to the ER Initial lab work done in the ER showed WBC 9.65, hemoglobin 15.7, platelet count 331, sodium 141, potassium 3.8, BUN 14, creatinine 1.20, glucose 129, AST 29, ALT 30, troponin 0.012 Influenza A not detected Influenza B not detected RSV not detected COVID-19 not detected EKG done in the ER showed heart rate of 130, no ST segment elevation or depression seen, no T-wave inversions seen. Chest x-ray done in the ER showed no acute cardiopulmonary Patient admitted to internal medicine service REVIEW OF SYSTEMS: CONSTITUTIONAL: No fever, no malaise, no fatigue. HEENT: No recent visual problems or hearing problems. Denied any sore throat. CARDIOVASCULAR: No chest pain, orthopnea, PND, no palpitations, no syncope. PULMONARY: As mentioned above GASTROINTESTINAL: No diarrhea, no nausea, no vomiting, no abdominal pain. NEUROLOGICAL: No headaches, no weakness, no numbness. HEMATOLOGICAL: Denies any bleeding or petechiae. GENITOURINARY: Denies any burning micturition, frequency, or urgency. MUSCULOSKELETAL/RHEUMATOLOGICAL: Denies any joint pain, swelling, or any muscle pain. ENDOCRINE: Denies any polyuria or polydipsia. The rest of the 14-point review of systems is negative. PHYSICAL EXAMINATION: GENERAL: The patient is alert and oriented x3, not in any acute distress. Well developed, well nourished. HEENT: Pupils are round and equally reacting to light. EOMI. No scleral icterus. No conjunctival pallor. Normocephalic, atraumatic. No pharyngeal erythema. No thyromegaly. CARDIOVASCULAR: S1 and S2 present. No murmurs, rubs, or gallops. PULMONARY: Chest is clear to auscultation, no wheezing or crackles. ABDOMEN: Soft, nontender, nondistended, normoactive bowel sounds. No palpable organomegaly. MUSCULOSKELETAL: No joint swelling or deformity. EXTREMITIES: No cyanosis, clubbing, or pedal edema. NEUROLOGICAL: Gross neurological examination did not reveal any focal deficits. SKIN: No rashes. Assessment and plan Acute asthma exacerbation Upper Respiratory tract infection Monitor vital signs Monitor CBC Monitor CMP Continue telemetry monitoring Ordered use of I-S Continue oxygen supplementation ordered Mucinex Ordered breathing treatments Ordered prednisone Resume home med Consult pulmonary Labs and medication were reviewed.. Continue same treatment. Continue with symptomatic treatment. Resume home medication. Monitor labs and vitals. DVT and GI prophylaxis. Further recommendations as per clinical course of the patient Dictation was produced using [employer] dictation software. please excuse any grammatical, word or spelling errors. Past Medical History Past Medical History: Asthma History of Any Multi-Drug Resistant Organisms: None Reported Past Surgical History: No Surgical Hx Reported Past Psychological History: No Psychological Hx Reported Smoking Status: Former smoker Past Alcohol Use History: None Reported Past Drug Use History: Marijuana Medications and Allergies Home Medications Medication Instructions Recorded Confirmed Type Albuterol Sulfate [Albuterol 2 puff INHALATION RT-Q4H PRN 01/09/25 01/09/25 History Sulfate Hfa] Levocetirizine Dihydrochloride 5 mg PO DAILY 01/09/25 01/09/25 History [Xyzal] Montelukast [Singulair] 10 mg PO DAILY 01/09/25 01/09/25 History Allergies Allergy/AdvReac Type Severity Reaction Status Date / Time No Known Allergies Allergy Verified 01/09/25 11:32 Physical Exam Vitals: Vital Signs Temp Pulse Pulse Resp BP BP Pulse Ox 01/09/25 08:21 119 H 01/09/25 08:06 118 H 01/09/25 06:51 97.9 F 112 H 20 136/81 92 L 01/09/25 06:27 107 H 20 115/63 99 01/09/25 05:56 110 H 01/09/25 05:45 109 H 01/09/25 03:32 118 H 01/09/25 03:22 117 H 01/09/25 02:36 116 H 22 132/86 98 01/09/25 02:25 130 H 01/09/25 02:13 115 H 01/09/25 01:59 122 H 01/09/25 01:45 24 01/09/25 01:34 98.2 F 138 H 22 130/96 97 Intake and Output 01/08/25 01/09/25 01/09/25 22:59 06:59 14:59 Other: Weight 83.915 kg Results CBC & Chem 7: 01/09/25 01:47 01/09/25 01:47 Labs: Abnormal Lab Results - Last 24 Hours (Table) 01/09/25 01/09/25 Range/Units 01:47 01:47 WBC 11.65 H (4.50-10.00) 10*3/uL Neutrophils # 8.71 H (1.80-7.70) 10*3/uL Monocytes # 1.07 H (0.20-1.00) 10*3/uL Eosinophils # 0.82 H (0.04-0.35) 10*3/uL Carbon Dioxide 21 L (22-30) mmol/L Glucose 129 H (74-99) mg/dL
[2025-01-09 16:07] LABS: ABG Base Excess -2.8 mmol/L; ABG HCO3 21 mmol/L (21-25); ABG Oxygen Saturation 95.2 % (94-97); ABG PCO2 32 mmHg (35-45); ABG PH 7.42 (7.35-7.45); ABG PO2 70 mmHg (83-108); ABG TCO2 22 mmol/L (19-24); Allen Test Performed? Yes
[2025-01-09 16:26] LABS: Glucose,Whole Blood 127 mg/dL (70-110)
[2025-01-09] MEDS: METOPROLOL TARTRATE 5 MG/5 ML VIAL IVP PRN (18:52)
[2025-01-09 19:50] LABS: Glucose,Whole Blood 124 mg/dL (70-110)
[2025-01-09] MEDS: MONTELUKAST 10 MG TAB PO SCH (20:17)
[2025-01-09] MEDS: SYMBICORT 160-4.5 MCG INHALER INHALATION SCH (20:45)
[2025-01-09] MEDS: LORazepam 1 MG TAB PO PRN (21:32)
[2025-01-09] MEDS: IPRATROPIUM-ALBUTEROL 3 ML NEB INHALATION PRN (23:23)
[2025-01-10 06:20] LABS: Glucose,Whole Blood 157 mg/dL (70-110)
--- NOTE | 2025-01-10 09:49 | P.PN ---
Subjective Progress Note Date: 01/10/25 Principal diagnosis: Asthma exacerbation. Pulmonary consult dated January 09, 2025. 29-year-old male with a history of chronic bronchial asthma, presents to the emergency department, on January 09, complaining of 2 days worth of increasing and progressive shortness of breath. In addition, the patient complains of cough, wheezing, and tightness. No fever or chills. He apparently does not have a family doctor. For his asthma, he takes Singulair, 10 mg, and albuterol inhaler. He does not take anything for maintenance therapy other than the Singulair. He apparently has not seen a lung doctor in the past. He states that he does not currently smoke, although he did smoke in the past. He does use marijuana. He does not vape. Again, he does not have a family doctor. He states that he typically shops around for doctor, and used to see Dr. Tavarez. White count is 11.7, hemoglobin 15.7, hematocrit 45.7, and platelet count 331,000. Sodium 141, potassium 3.8, chlorides 105, CO2 21, BUN 14, creatinine 1.20. Glucose is 129. Viral screen was negative for RSV, coronavirus, and influenza. Chest x-ray was negative. Progress note dated January 10, 2025. 29-year-old male seen yesterday in consultation for an asthma exacerbation. Currently, he is doing better. He is on 3 L of oxygen. No IV fluids. He is receiving all appropriate medications. Apparently had some difficulty with his breathing last night, but is doing better this morning. He does admit to some shortness of breath, tightness, and wheezing. Current laboratory data is reviewed. Glucose is 157. Nothing else to report. Objective - Vital Signs Vital signs: Vital Signs Temp 98.1 F 01/10/25 08:12 Pulse 118 H 01/10/25 08:58 Resp 20 01/10/25 08:12 BP 123/70 01/10/25 08:12 Pulse Ox 96 01/10/25 08:12 FiO2 Intake & Output 01/09/25 01/10/25 01/10/25 18:59 06:59 18:59 Intake Total 360 240 Output Total 0 0 Balance 360 240 Weight 78.6 kg Intake: Oral 360 240 Output: Gastric Drainage 0 Urine 0 Stool 0 0 Urine/Stool Mix 0 Emesis 0 Oral Regurgitation 0 Other 0 Other: Voiding Method Toilet Toilet # Voids 0 1 # Bowel Movements 0 - Exam No acute distress, oriented 3. No audible wheezing, use of accessory muscles, or conversational dyspnea. HEENT examination is grossly unremarkable. Mucous membranes are moist. No oral lesions. Neck supple. Full range of motion. No adenopathy thyromegaly or neck vein distention. Cardiovascular examination reveals regular rhythm rate. S1-S2 normal. No S3 or S4. No discernible murmur noted. The patient is a bit tachycardic. Lungs reveal diffuse bilateral inspiratory and expiratory wheezes. No rhonchi. No crackles. Slight prolongation on forced maneuver. Breath sounds are equal bilaterally. Abdomen soft bowel sounds are heard. No masses or tenderness. Extremities are intact. No cyanosis clubbing or edema. Skin is without rash or lesion. Neurologic examination is brief but nonfocal. - Labs CBC & Chem 7: 01/09/25 01:47 01/09/25 01:47 Labs: Abnormal Lab Results - Last 24 Hours (Table) 01/09/25 01/09/25 01/09/25 Range/Units 16:02 16:25 19:49 ABG pCO2 32 L (35-45) mmHg ABG pO2 70 L (83-108) mmHg POC Glucose (mg/dL) 127 H 124 H (70-110) mg/dL 01/10/25 Range/Units 06:19 ABG pCO2 (35-45) mmHg ABG pO2 (83-108) mmHg POC Glucose (mg/dL) 157 H (70-110) mg/dL Assessment and Plan Assessment: Acute exacerbation of chronic bronchial asthma. Plan: Plan dated January 09, 2025. The patient is currently on appropriate medications, including updrafts with both albuterol sulfate and ipratropium bromide, as well as singular 10 mg at bedtime, and prednisone 40 mg a day. In addition, we add Symbicort 160/4.5, 2 puffs twice a day. The patient does not appear to have an infection, and at this time, does not need any antibiotics. All labs, x-rays, and medications are reviewed. We will continue to follow make recommendations along the way. The patient does need to get a family doctor. Prognosis is guarded. Dictation was produced using [employer] dictation software. Please excuse any grammatical, word or spelling errors. Plan dated January 10, 2025. The patient is seen today in room 360. The patient is on 3 L of oxygen. He is sitting at the side of the bed. The patient is here this morning. He continues on appropriate medications. He is not quite ready for discharge. At least a nother full day and may be 2. We will continue to follow make recommendations along the way. All labs, x-rays, and medications are reviewed. Prognosis is guarded. Dictation was produced using [facility] software. Please excuse any grammatical, word or spelling errors. Time with Patient: Less than 30
[2025-01-10 11:38] LABS: Glucose,Whole Blood 133 mg/dL (70-110)
[2025-01-10] MEDS: methylPREDNISolone SOD SUCCI 40 MG/ML 1 ML VIAL IV SCH (11:41)
--- NOTE | 2025-01-10 13:35 | P.PN ---
Subjective Progress Note Date: 01/10/25 patient is 29-year-old gentleman with past medical history significant for asthma presented to the ER because of shortness of breath. Patient said that he was all right 2 days back when he started noticing shortness of breath. Shortness of breath was present on rest as resolution. Patient was complaining of wheezing. Patient was complaining of cough which is nonproductive. There was no complaint of fever or chills. Patient stated that he was exposed to his kid being sick with upper respiratory infection. Patient has been using inhalers at home but without any relief. Because of his worsening shortness of breath, patient came to the ER Initial lab work done in the ER showed WBC 9.65, hemoglobin 15.7, platelet count 331, sodium 141, potassium 3.8, BUN 14, creatinine 1.20, glucose 129, AST 29, ALT 30, troponin 0.012 Influenza A not detected Influenza B not detected RSV not detected COVID-19 not detected EKG done in the ER showed heart rate of 130, no ST segment elevation or depression seen, no T-wave inversions seen. Chest x-ray done in the ER showed no acute cardiopulmonary Patient admitted to internal medicine service 01/10. Patient seen and examined. Was complaining of shortness of breath overnight, had to be placed on oxygen, currently on 3 L of oxygen. States he feels better this morning. REVIEW OF SYSTEMS: CONSTITUTIONAL: No fever, no malaise,. CARDIOVASCULAR: No chest pain, no palpitations, no syncope. PULMONARY: As mentioned above GASTROINTESTINAL: No diarrhea, no nausea, no vomiting, no abdominal pain. NEUROLOGICAL: No headaches, no weakness, PHYSICAL EXAMINATION: GENERAL: The patient is alert and oriented x3, not in any acute distress. Well developed, well nourished. HEENT: Pupils are round and equally reacting to light. EOMI. No scleral icterus. No conjunctival pallor. Normocephalic, atraumatic. No pharyngeal erythema. No thyromegaly. CARDIOVASCULAR: S1 and S2 present. No murmurs, rubs, or gallops. PULMONARY: Chest is clear to auscultation, no wheezing or crackles. ABDOMEN: Soft, nontender, nondistended, normoactive bowel sounds. No palpable organomegaly. MUSCULOSKELETAL: No joint swelling or deformity. EXTREMITIES: No cyanosis, clubbing, or pedal edema. NEUROLOGICAL: Gross neurological examination did not reveal any focal deficits. SKIN: No rashes. Assessment and plan Acute asthma exacerbation Acute hypoxic respiratory failure Upper Respiratory tract infection Monitor vital signs Monitor CBC Monitor CMP Continue telemetry monitoring Continue oxygen supplementation Continue Mucinex Continue breathing treatments Currently on IV Solu-Medrol 40 mg Q 6 Pulmonology following Labs and medication were reviewed.. Continue same treatment. Continue with symptomatic treatment. Resume home medication. Monitor labs and vitals. DVT and GI prophylaxis. Further recommendations as per clinical course of the patient Dictation was produced using [employer] dictation software. please excuse any grammatical, word or spelling errors. Objective - Vital Signs Vital signs: Vital Signs Temp 98.1 F 01/10/25 08:12 Pulse 118 H 01/10/25 08:58 Resp 20 01/10/25 08:12 BP 123/70 01/10/25 08:12 Pulse Ox 96 01/10/25 08:12 FiO2 Intake & Output 01/09/25 01/10/25 01/10/25 18:59 06:59 18:59 Intake Total 360 240 Output Total 0 0 Balance 360 240 Weight 78.6 kg Intake: Oral 360 240 Output: Gastric Drainage 0 Urine 0 Stool 0 0 Urine/Stool Mix 0 Emesis 0 Oral Regurgitation 0 Other 0 Other: Voiding Method Toilet Toilet # Voids 0 1 # Bowel Movements 0 - Labs CBC & Chem 7: 01/09/25 01:47 01/09/25 01:47 Labs: Abnormal Lab Results - Last 24 Hours (Table) 01/09/25 01/09/25 01/09/25 Range/Units 16:02 16:25 19:49 ABG pCO2 32 L (35-45) mmHg ABG pO2 70 L (83-108) mmHg POC Glucose (mg/dL) 127 H 124 H (70-110) mg/dL 01/10/25 Range/Units 06:19 ABG pCO2 (35-45) mmHg ABG pO2 (83-108) mmHg POC Glucose (mg/dL) 157 H (70-110) mg/dL
[2025-01-10 16:31] LABS: Glucose,Whole Blood 129 mg/dL (70-110)
[2025-01-10 19:45] LABS: Glucose,Whole Blood 129 mg/dL (70-110)
[2025-01-11 05:55] LABS: Glucose,Whole Blood 137 mg/dL (70-110)
[2025-01-11 11:37] LABS: Glucose,Whole Blood 133 mg/dL (70-110)
[2025-01-11] MEDS: methylPREDNISolone SOD SUCCI 125 MG/2 ML VIAL IV SCH (12:00)
--- NOTE | 2025-01-11 14:56 | P.PN ---
Subjective Progress Note Date: 01/11/25 29-year-old male with a history of chronic bronchial asthma, presents to the emergency department, on January 09, complaining of 2 days worth of increasing and progressive shortness of breath. In addition, the patient complains of cough, wheezing, and tightness. No fever or chills. He apparently does not have a family doctor. For his asthma, he takes Singulair, 10 mg, and albuterol inhaler. He does not take anything for maintenance therapy other than the Singulair. He apparently has not seen a lung doctor in the past. He states that he does not currently smoke, although he did smoke in the past. He does use marijuana. He does not vape. Again, he does not have a family doctor. He states that he typically shops around for doctor, and used to see Dr. Tavarez. White count is 11.7, hemoglobin 15.7, hematocrit 45.7, and platelet count 331,000. Sodium 141, potassium 3.8, chlorides 105, CO2 21, BUN 14, creatinine 1.20. Glucose is 129. Viral screen was negative for RSV, coronavirus, and in fluenza. Chest x-ray was negative. Progress note dated January 10, 2025. 29-year-old male seen yesterday in consultation for an asthma exacerbation. Currently, he is doing better. He is on 3 L of oxygen. No IV fluids. He is receiving all appropriate medications. Apparently had some difficulty with his breathing last night, but is doing better this morning. He does admit to some shortness of breath, tightness, and wheezing. Current laboratory data is reviewed. Glucose is 157. Nothing else to report. 01/11/2025, the patient remains on 4 L of oxygen by nasal cannula. Remains spastic and wheezy. Limited improvement over the past 24 hours. He is currently on Symbicort, DuoNeb updrafts and IV Solu-Medrol 60 mg every 6 hours. He is producing some limited amount of sputum at this point. The viral screen has been negative. Troponins are negative. LFTs are normal. proBNP level is not elevated. Pulse ox is in the order of 95% and the patient has been weaned down to 3 L of O2 nasal cannula. Noted the patient is a case of severe asthma. The patient has not utilize any form of respiratory medication on outpatient basis due to lack of insurance. The patient is taking Singulair only. He has an albuterol rescue inhaler. No other maintenance inhalers. He has smoked in the past. He recently was laid off from his job. He is a [employer] truck driver. The viral screen was negative. Objective - Vital Signs Vital signs: Vital Signs Temp 98.9 F 01/11/25 08:00 Pulse 116 H 01/11/25 09:14 Resp 16 01/11/25 08:00 BP 123/75 01/11/25 08:00 Pulse Ox 97 01/11/25 08:00 FiO2 Intake & Output 01/10/25 01/11/25 01/11/25 18:59 06:59 18:59 Intake Total 780 Output Total 0 0 Balance 780 0 Weight 77.5 kg Intake: Oral 780 Output: Stool 0 0 Other: Voiding Method Toilet Toilet Toilet # Voids 1 - Exam No acute distress, oriented 3. No audible wheezing, use of accessory muscles, or conversational dyspnea. The patient is currently on 4 L of oxygen nasal cannula. HEENT examination is grossly unremarkable. Mucous membranes are moist. No oral lesions. Neck supple. Full range of motion. No adenopathy thyromegaly or neck vein distention. Cardiovascular examination reveals regular rhythm rate. S1-S2 normal. No S3 or S4. No discernible murmur noted. Lungs reveal diffuse bilateral inspiratory and expiratory wheezes. No rhonchi. No crackles. Slight prolongation on forced maneuver. Breath sounds are equal bilaterally. Abdomen soft bowel sounds are heard. No masses or tenderness. Extremities are intact. No cyanosis clubbing or edema. Skin is without rash or lesion. Neurologic examination is brief but nonfocal. - Labs CBC & Chem 7: 01/09/25 01:47 01/09/25 01:47 Labs: Abnormal Lab Results - Last 24 Hours (Table) 01/10/25 01/10/25 01/10/25 Range/Units 11:37 16:30 19:43 POC Glucose (mg/dL) 133 H 129 H 129 H (70-110) mg/dL 01/11/25 Range/Units 05:54 POC Glucose (mg/dL) 137 H (70-110) mg/dL Assessment and Plan Plan: Acute exacerbation of chronic bronchial asthma. Acute shortness of breath secondary to above Acute hypoxic respiratory failure, currently on 4 L of oxygen by nasal cannula. Oxygenation is stable Plan: Limited improvement over the past 24 hours. Will continue same treatment for now. Wean down FiO2 as tolerated, dropped FiO2 down to 3 L nasal cannula. Continue Symbicort Continue DuoNeb updrafts IV Solu-Medrol 60 mg every 6 hours Continue rest of the medications Not ready for discharge yet. Obviously, this patient will need close monitoring on outpatient basis and asthma management as the patient seems to have severe asthmatic disorder. Time with Patient: Greater than 30
[2025-01-11 16:32] LABS: Glucose,Whole Blood 136 mg/dL (70-110)
[2025-01-11 20:26] LABS: Glucose,Whole Blood 139 mg/dL (70-110)
--- NOTE | 2025-01-11 23:29 | P.PN ---
Subjective Progress Note Date: 01/11/25 patient is 29-year-old gentleman with past medical history significant for asthma presented to the ER because of shortness of breath. Patient said that he was all right 2 days back when he started noticing shortness of breath. Shortness of breath was present on rest as resolution. Patient was complaining of wheezing. Patient was complaining of cough which is nonproductive. There was no complaint of fever or chills. Patient stated that he was exposed to his kid being sick with upper respiratory infection. Patient has been using inhalers at home but without any relief. Because of his worsening shortness of breath, patient came to the ER Initial lab work done in the ER showed WBC 9.65, hemoglobin 15.7, platelet count 331, sodium 141, potassium 3.8, BUN 14, creatinine 1.20, glucose 129, AST 29, ALT 30, troponin 0.012 Influenza A not detected Influenza B not detected RSV not detected COVID-19 not detected EKG done in the ER showed heart rate of 130, no ST segment elevation or depression seen, no T-wave inversions seen. Chest x-ray done in the ER showed no acute cardiopulmonary Patient admitted to internal medicine service 01/10. Patient seen and examined. Was complaining of shortness of breath overnight, had to be placed on oxygen, currently on 3 L of oxygen. States he feels better this morning. 01/11/2025 Patient is seen and evaluated in follow-up today with pulmonary following closely. Patient maintained on 4 L via nasal cannula and has titrated down to 3 L and weaning as tolerated. Patient will be continued on [id number] DuoNeb treatments along with inhalers and steroids. Will add incentive spirometer and encouraged increase activity as tolerated. Patient reports he is coughing up a lot more phlegm at this time. REVIEW OF SYSTEMS: CONSTITUTIONAL: No fever, no malaise,. CARDIOVASCULAR: No chest pain, no palpitations, no syncope. PULMONARY: As mentioned above GASTROINTESTINAL: No diarrhea, no nausea, no vomiting, no abdominal pain. NEUROLOGICAL: No headaches, no weakness PHYSICAL EXAMINATION: GENERAL: The patient is alert and oriented x3, tearful, mildly anxious on exam. Well developed, well nourished. HEENT: Pupils are round and equally reacting to light. EOMI. No scleral icterus. No conjunctival pallor. Normocephalic, atraumatic. No pharyngeal erythema. No thyromegaly. CARDIOVASCULAR: S1 and S2 present. No murmurs, rubs, or gallops. PULMONARY: Diminished breath sounds bilaterally with significant expiratory wheezes and diminished aeration. No accessory muscle use noted ABDOMEN: Soft, nontender, nondistended, normoactive bowel sounds. No palpable organomegaly. MUSCULOSKELETAL: No joint swelling or deformity. EXTREMITIES: No cyanosis, clubbing, or pedal edema. NEUROLOGICAL: Gross neurological examination did not reveal any focal deficits. SKIN: No rashes. Assessment: Acute asthma exacerbation, will need further testing outpatient per pulmonary deicer tester Acute hypoxic respiratory failure, currently on 4 L secondary to above Upper Respiratory tract infection GI prophylaxis DVT prophylaxis Full code Plan: Patient is continued on DuoNebs [id number] IV steroids and will continue with pulmonary following Patient currently maintained on 4 L and being weaned to 3 L this morning. Will add incentive spirometer and encouraged use at least 10 times every hour while awake Wean FiO2 as tolerated as patient does not wear oxygen outpatient. May need to assess for home O2 evaluation in the next few days Encouraged increase activity as tolerated possible discharge in the next 24 to 48 hours, once cleared by pulmonary. Patient is quite bronchospastic and significantly wheezing on exam The impression and plan of care has been dictated by Mine Dos Santos, Nurse Practitioner as directed. Dr. Sergio MD I have performed a history and examination and MDM of this patient, discussed the same with the dictator, and agree with the dictator's assessment and plan as written ,documented as a scribe. Based on total visit time, I have performed more than 50% of the visit. Objective - Vital Signs Vital signs: Vital Signs Temp 98.9 F 01/11/25 08:00 Pulse 116 H 01/11/25 09:14 Resp 16 01/11/25 08:00 BP 123/75 01/11/25 08:00 Pulse Ox 97 01/11/25 08:00 FiO2 Intake & Output 01/10/25 01/11/25 01/11/25 18:59 06:59 18:59 Intake Total 780 Output Total 0 0 Balance 780 0 Weight 77.5 kg Intake: Oral 780 Output: Stool 0 0 Other: Voiding Method Toilet Toilet # Voids 1 - Labs CBC & Chem 7: 01/09/25 01:47 01/09/25 01:47 Labs: Abnormal Lab Results - Last 24 Hours (Table) 01/10/25 01/10/25 01/10/25 Range/Units 11:37 16:30 19:43 POC Glucose (mg/dL) 133 H 129 H 129 H (70-110) mg/dL 01/11/25 Range/Units 05:54 POC Glucose (mg/dL) 137 H (70-110) mg/dL
[2025-01-12] MEDS: PANTOPRAZOLE 40 MG TABLET PO SCH (05:53)
[2025-01-12 06:08] LABS: Glucose,Whole Blood 133 mg/dL (70-110)
[2025-01-12 08:13] LABS: African American GFR (CKD) >90 (>60 ml/min/1.73 sqM); Anion Gap 16 mmol/L; Blood Urea Nitrogen 28 mg/dL (9-20); Calcium 10.2 mg/dL (8.4-10.2); Carbon Dioxide 20 mmol/L (22-30); Chloride 105 mmol/L (98-107); Glucose 138 mg/dL (74-99); Non-African American GFR(CKD) >90 (>60 ml/min/1.73 sqM); Sodium 141 mmol/L (137-145)
[2025-01-12 12:30] LABS: Glucose,Whole Blood 126 mg/dL (70-110)
[2025-01-12] MEDS: CALCIUM CARBONATE 500 MG CHEWABLE PO PRN (13:34)
--- NOTE | 2025-01-12 15:42 | P.PN ---
Subjective Progress Note Date: 01/12/25 29-year-old male with a history of chronic bronchial asthma, presents to the emergency department, on January 09, complaining of 2 days worth of increasing and progressive shortness of breath. In addition, the patient complains of cough, wheezing, and tightness. No fever or chills. He apparently does not have a family doctor. For his asthma, he takes Singulair, 10 mg, and albuterol inhaler. He does not take anything for maintenance therapy other than the Singulair. He apparently has not seen a lung doctor in the past. He states that he does not currently smoke, although he did smoke in the past. He does use marijuana. He does not vape. Again, he does not have a family doctor. He states that he typically shops around for doctor, and used to see Dr. Tavarez. White count is 11.7, hemoglobin 15.7, hematocrit 45.7, and platelet count 331,000. Sodium 141, potassium 3.8, chlorides 105, CO2 21, BUN 14, creatinine 1.20. Glucose is 129. Viral screen was negative for RSV, coronavirus, and in fluenza. Chest x-ray was negative. Progress note dated January 10, 2025. 29-year-old male seen yesterday in consultation for an asthma exacerbation. Currently, he is doing better. He is on 3 L of oxygen. No IV fluids. He is receiving all appropriate medications. Apparently had some difficulty with his breathing last night, but is doing better this morning. He does admit to some shortness of breath, tightness, and wheezing. Current laboratory data is reviewed. Glucose is 157. Nothing else to report. 01/11/2025, the patient remains on 4 L of oxygen by nasal cannula. Remains spastic and wheezy. Limited improvement over the past 24 hours. He is currently on Symbicort, DuoNeb updrafts and IV Solu-Medrol 60 mg every 6 hours. He is producing some limited amount of sputum at this point. The viral screen has been negative. Troponins are negative. LFTs are normal. proBNP level is not elevated. Pulse ox is in the order of 95% and the patient has been weaned down to 3 L of O2 nasal cannula. Noted the patient is a case of severe asthma. The patient has not utilize any form of respiratory medication on outpatient basis due to lack of insurance. The patient is taking Singulair only. He has an albuterol rescue inhaler. No other maintenance inhalers. He has smoked in the past. He recently was laid off from his job. 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 The viral screen was negative. On 01/12/2025, the patient is feeling better. Less bronchospastic and wheezy. I weaned him down to 2 L and later on placed him on room air oxygen. Less bronchospastic and wheezy compared to yesterday. Remains on IV Solu-Medrol I intend to continue the same dose for the next 24 hours. Remains on Symbicort and DuoNeb updrafts. The patient denies having any specific complaints. Electrolytes are all stable. BUN is 28 with a creatinine of 0.8. Blood sugar from this morning is at 126. Tolerating diet. Denies having any chest pain. No pleurisy. No hemoptysis. No other new complaints otherwise for now. Objective - Vital Signs Vital signs: Vital Signs Temp 97.8 F 01/12/25 07:55 Pulse 92 01/12/25 09:03 Resp 17 01/12/25 07:55 BP 125/64 01/12/25 07:55 Pulse Ox 95 01/12/25 07:55 FiO2 Intake & Output 01/11/25 01/12/25 01/12/25 18:59 06:59 18:59 Intake Total 480 200 Balance 480 200 Weight 78.2 kg Intake: Oral 480 200 Other: Voiding Method Toilet Toilet Toilet # Voids 3 - Exam No acute distress, oriented 3. No audible wheezing, use of accessory muscles, or conversational dyspnea. The patient is currently on room air oxygen HEENT examination is grossly unremarkable. Mucous membranes are moist. No oral lesions. Neck supple. Full range of motion. No adenopathy thyromegaly or neck vein distention. Cardiovascular examination reveals regular rhythm rate. S1-S2 normal. No S3 or S4. No discernible murmur noted. Lungs reveal diffuse bilateral inspiratory and expiratory wheezes. No rhonchi. No crackles. Slight prolongation on forced maneuver. Breath sounds are equal bilaterally. Abdomen soft bowel sounds are heard. No masses or tenderness. Extremities are intact. No cyanosis clubbing or edema. Skin is without rash or lesion. Neurologic examination is brief but nonfocal. - Labs CBC & Chem 7: 01/09/25 01:47 01/12/25 06:50 Labs: Abnormal Lab Results - Last 24 Hours (Table) 01/11/25 01/11/25 01/11/25 Range/Units 11:36 16:30 20:25 Carbon Dioxide (22-30) mmol/L BUN (9-20) mg/dL Glucose (74-99) mg/dL POC Glucose (mg/dL) 133 H 136 H 139 H (70-110) mg/dL 01/12/25 01/12/25 Range/Units 06:07 06:50 Carbon Dioxide 20 L (22-30) mmol/L BUN 28 H (9-20) mg/dL Glucose 138 H (74-99) mg/dL POC Glucose (mg/dL) 133 H (70-110) mg/dL Assessment and Plan Plan: Acute exacerbation of chronic bronchial asthma, clinically improving and the patient is less bronchospastic and wheezy Acute shortness of breath secondary to above Acute hypoxic respiratory failure, improved and the patient is currently on room air oxygen Plan: Obvious improvement over the past 24 hours. Will continue same treatment for now. Wean down FiO2 as tolerated, and the patient is currently on room air oxygen Continue Symbicort Continue DuoNeb updrafts IV Solu-Medrol 60 mg every 6 hours and this will be continued for today and the patient will be transition to prednisone burst taper as of tomorrow Continue rest of the medications Not ready for discharge yet. Possibly will be ready for discharge tomorrow. Oxygenation is improved and the patient has been weaned down to room air oxygen. Obviously, this patient will need close monitoring on outpatient basis and asthma management as the patient seems to have severe asthmatic disorder. Time with Patient: Greater than 30
[2025-01-12 16:30] LABS: Glucose,Whole Blood 94 mg/dL (70-110)
[2025-01-12 20:11] LABS: Glucose,Whole Blood 121 mg/dL (70-110)
[2025-01-13 03:37] VITALS: RESP 16
--- NOTE | 2025-01-13 06:04 | P.PN ---
Subjective Progress Note Date: 01/12/25 patient is 29-year-old gentleman with past medical history significant for asthma presented to the ER because of shortness of breath. Patient said that he was all right 2 days back when he started noticing shortness of breath. Shortness of breath was present on rest as resolution. Patient was complaining of wheezing. Patient was complaining of cough which is nonproductive. There was no complaint of fever or chills. Patient stated that he was exposed to his kid being sick with upper respiratory infection. Patient has been using inhalers at home but without any relief. Because of his worsening shortness of breath, patient came to the ER Initial lab work done in the ER showed WBC 9.65, hemoglobin 15.7, platelet count 331, sodium 141, potassium 3.8, BUN 14, creatinine 1.20, glucose 129, AST 29, ALT 30, troponin 0.012 Influenza A not detected Influenza B not detected RSV not detected COVID-19 not detected EKG done in the ER showed heart rate of 130, no ST segment elevation or depression seen, no T-wave inversions seen. Chest x-ray done in the ER showed no acute cardiopulmonary Patient admitted to internal medicine service 01/10. Patient seen and examined. Was complaining of shortness of breath overnight, had to be placed on oxygen, currently on 3 L of oxygen. States he feels better this morning. 01/11/2025 Patient is seen and evaluated in follow-up today with pulmonary following closely. Patient maintained on 4 L via nasal cannula and has titrated down to 3 L and weaning as tolerated. Patient will be continued on [id number] DuoNeb treatments along with inhalers and steroids. Will add incentive spirometer and encouraged increase activity as tolerated. Patient reports he is coughing up a lot more phlegm at this time. 01/12/2025 Patient is seen in follow-up today with pulmonary following. Patient is continued on 3 L via nasal cannula saturating 95%. Patient is weaning as tolerated and currently on 2 L this afternoon. Patient does not wear oxygen outpatient and recommended waiting till room air. Incentive spirometer ordered and encouraged the patient to use at least 10 times every hour while awake. Will continue on [id number] breathing treatments with as needed inhalers and IV steroids with pulmonary following. Encouraged to increase activity as tolerated and discussion of possible discharge in next 24 to 48 hours. REVIEW OF SYSTEMS: CONSTITUTIONAL: No fever, no malaise,. CARDIOVASCULAR: No chest pain, no palpitations, no syncope. PULMONARY: Continued shortness of breath with cough and congestion although feels is improving GASTROINTESTINAL: No diarrhea, no nausea, no vomiting, no abdominal pain. NEUROLOGICAL: No headaches, no weakness PHYSICAL EXAMINATION: GENERAL: The patient is alert and oriented x3. Well developed, well nourished. HEENT: Pupils are round and equally reacting to light. EOMI. No scleral icterus. No conjunctival pallor. Normocephalic, atraumatic. No pharyngeal erythema. No thyromegaly. CARDIOVASCULAR: S1 and S2 present. No murmurs, rubs, or gallops. PULMONARY: Diminished breath sounds bilaterally with continued expiratory wheezes although significantly improved and diminished aeration. Less b ronchospastic. No accessory muscle use noted ABDOMEN: Soft, nontender, nondistended, normoactive bowel sounds. No palpable organomegaly. MUSCULOSKELETAL: No joint swelling or deformity. EXTREMITIES: No cyanosis, clubbing, or pedal edema. NEUROLOGICAL: Gross neurological examination did not reveal any focal deficits. SKIN: No rashes. 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 Continue to encourage incentive spirometer use at least 10 times every hour while awake Wean FiO2 as tolerated as patient does not wear oxygen outpatient. May need to assess for home O2 evaluation in the next few days Encouraged increase activity as tolerated possible discharge in the next 24 hours, once cleared by pulmonary. Patient is slowly improving and remaining FiO2 as tolerated. The impression and plan of care has been dictated by Mine Dos Santos, Nurse Practitioner as directed. Dr. Sergio MD I have performed a history and examination and MDM of this patient, discussed the same with the dictator, and agree with the dictator's assessment and plan as written ,documented as a scribe. Based on total visit time, I have performed more than 50% of the visit. Objective - Vital Signs Vital signs: Vital Signs Temp 97.8 F 01/12/25 07:55 Pulse 92 01/12/25 09:03 Resp 17 01/12/25 07:55 BP 125/64 01/12/25 07:55 Pulse Ox 95 01/12/25 07:55 FiO2 Intake & Output 01/11/25 01/12/25 01/12/25 18:59 06:59 18:59 Intake Total 480 200 Balance 480 200 Weight 78.2 kg Intake: Oral 480 200 Other: Voiding Method Toilet Toilet # Voids 3 - Labs CBC & Chem 7: 01/09/25 01:47 01/12/25 06:50 Labs: Abnormal Lab Results - Last 24 Hours (Table) 01/11/25 01/11/25 01/11/25 Range/Units 11:36 16:30 20:25 Carbon Dioxide (22-30) mmol/L BUN (9-20) mg/dL Glucose (74-99) mg/dL POC Glucose (mg/dL) 133 H 136 H 139 H (70-110) mg/dL 01/12/25 01/12/25 Range/Units 06:07 06:50 Carbon Dioxide 20 L (22-30) mmol/L BUN 28 H (9-20) mg/dL Glucose 138 H (74-99) mg/dL POC Glucose (mg/dL) 133 H (70-110) mg/dL
[2025-01-13 06:06] LABS: Glucose,Whole Blood 134 mg/dL (70-110)
[2025-01-13] MEDS: predniSONE 20 MG TAB PO SCH (11:08)
[2025-01-13 11:28] VITALS: BP 136/85; TEMP 98.2
[2025-01-13 11:35] LABS: Glucose,Whole Blood 141 mg/dL (70-110)
[2025-01-13 12:10] VITALS: PULSE 92
--- NOTE | 2025-01-13 17:10 | P.PN ---
Subjective Progress Note Date: 01/13/25 29-year-old male with a history of chronic bronchial asthma, presents to the emergency department, on January 09, complaining of 2 days worth of increasing and progressive shortness of breath. In addition, the patient complains of cough, wheezing, and tightness. No fever or chills. He apparently does not have a family doctor. For his asthma, he takes Singulair, 10 mg, and albuterol inhaler. He does not take anything for maintenance therapy other than the Singulair. He apparently has not seen a lung doctor in the past. He states that he does not currently smoke, although he did smoke in the past. He does use marijuana. He does not vape. Again, he does not have a family doctor. He states that he typically shops around for doctor, and used to see Dr. Tavarez. White count is 11.7, hemoglobin 15.7, hematocrit 45.7, and platelet count 331,000. Sodium 141, potassium 3.8, chlorides 105, CO2 21, BUN 14, creatinine 1.20. Glucose is 129. Viral screen was negative for RSV, coronavirus, and in fluenza. Chest x-ray was negative. Progress note dated January 10, 2025. 29-year-old male seen yesterday in consultation for an asthma exacerbation. Currently, he is doing better. He is on 3 L of oxygen. No IV fluids. He is receiving all appropriate medications. Apparently had some difficulty with his breathing last night, but is doing better this morning. He does admit to some shortness of breath, tightness, and wheezing. Current laboratory data is reviewed. Glucose is 157. Nothing else to report. 01/11/2025, the patient remains on 4 L of oxygen by nasal cannula. Remains spastic and wheezy. Limited improvement over the past 24 hours. He is currently on Symbicort, DuoNeb updrafts and IV Solu-Medrol 60 mg every 6 hours. He is producing some limited amount of sputum at this point. The viral screen has been negative. Troponins are negative. LFTs are normal. proBNP level is not elevated. Pulse ox is in the order of 95% and the patient has been weaned down to 3 L of O2 nasal cannula. Noted the patient is a case of severe asthma. The patient has not utilize any form of respiratory medication on outpatient basis due to lack of insurance. The patient is taking Singulair only. He has an albuterol rescue inhaler. No other maintenance inhalers. He has smoked in the past. He recently was laid off from his job. 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 The viral screen was negative. On 01/12/2025, the patient is feeling better. Less bronchospastic and wheezy. I weaned him down to 2 L and later on placed him on room air oxygen. Less bronchospastic and wheezy compared to yesterday. Remains on IV Solu-Medrol I intend to continue the same dose for the next 24 hours. Remains on Symbicort and DuoNeb updrafts. The patient denies having any specific complaints. Electrolytes are all stable. BUN is 28 with a creatinine of 0.8. Blood sugar from this morning is at 126. Tolerating diet. Denies having any chest pain. No pleurisy. No hemoptysis. No other new complaints otherwise for now. On today's evaluation of 01/13/2025, the patient is feeling well. He is on room air oxygen. Denies having any significant respiratory distress. No chest pain. No fever. No chills. No pleurisy. No hemoptysis. He seems to be recovering from an acute asthma exacerbation the patient will be started on a prednisone burst taper. Will arrange a home nebulizer for this patient in addition. Objective - Vital Signs Vital signs: Vital Signs Temp 97.9 F 01/13/25 07:36 Pulse 96 01/13/25 09:32 Resp 16 01/13/25 07:36 BP 121/74 01/13/25 07:36 Pulse Ox 94 L 01/13/25 07:36 FiO2 Intake & Output 01/12/25 01/13/25 01/13/25 18:59 06:59 18:59 Intake Total 360 300 180 Balance 360 300 180 Weight 77.7 kg Intake: Oral 360 300 180 Other: Voiding Method Toilet Toilet Toilet # Voids 1 - Exam No acute distress, oriented 3. No audible wheezing, use of accessory muscles, or conversational dyspnea. The patient is currently on room air oxygen HEENT examination is grossly unremarkable. Mucous membranes are moist. No oral lesions. Neck supple. Full range of motion. No adenopathy thyromegaly or neck vein distention. Cardiovascular examination reveals regular rhythm rate. S1-S2 normal. No S3 or S4. No discernible murmur noted. Lungs reveal diffuse bilateral inspiratory and expiratory wheezes. No rhonchi. No crackles. Slight prolongation on forced maneuver. Breath sounds are equal bilaterally. Abdomen soft bowel sounds are heard. No masses or tenderness. Extremities are intact. No cyanosis clubbing or edema. Skin is without rash or lesion. Neurologic examination is brief but nonfocal. - Labs CBC & Chem 7: 01/09/25 01:47 01/12/25 06:50 Labs: Abnormal Lab Results - Last 24 Hours (Table) 01/12/25 01/12/25 01/13/25 Range/Units 12:29 20:10 06:06 POC Glucose (mg/dL) 126 H 121 H 134 H (70-110) mg/dL Assessment and Plan Plan: Acute exacerbation of chronic bronchial asthma, clinically improved, oxygenation is also improved. Less bronchospastic and wheezy. Acute shortness of breath secondary to above Acute hypoxic respiratory failure, improved and the patient is currently on room air oxygen Plan: Clinically improving the patient can be discharged home on a prednisone burst taper starting with 40 mg p.o. daily. Will arrange a home nebulizer for this patient Continue Symbicort Continue [facility] follow-up regarding his bronchial asthma.
== END 2025-01-13 13:19 | disposition home or self-care (01) | DRG 202 ==
LOC: EC 01:33 → 3SCARD 05:07 → OBSVTOIN 05:07 → 3SCARD 06:24
PROVIDERS: ADMIT Hospitalist; ATTEND Hospitalist
DX: J45.901 Unspecified asthma with (acute) exacerbation (principal); J96.01 Acute respiratory failure with hypoxia; J06.9 Acute upper respiratory infection, unspecified; Z56.0 Unemployment, unspecified; Z59.71 Insufficient health insurance coverage; Z11.52 Encounter for screening for COVID-19; Z79.899 Other long term (current) drug therapy; Z87.891 Personal history of nicotine dependence
CPT/HCPCS: 36415; 36600; 71045; 80048; 80053; 82805; 83036; 83880; 84484; 85025; 85610; 85730; 87636; 93005; 94640; 94760; 96361; 96374; 96375; 99285